=== PATIENT | female | born 1940 | race Caucasian/White ===

== ENCOUNTER 2025-04-17 07:47 | Inpatient (IN) | payer MEDICARE, SELFPAY ==
[2025-04-17] VITALS (15 sets, daily range): BP systolic 131–178; BP diastolic 47–76; PULSE 55–89; RESP 17–28; TEMP 36.1–37.2; O2SAT 93–99; BMI 32.3; BMI 30.4
--- NOTE | 2025-04-17 08:12 | RAD_ITS ---
PROCEDURE: CHEST PA AND LATERAL 04/17/2025 REASON FOR EXAM: SOB TECHNIQUE: CHEST PA AND LATERAL COMPARISON: None FINDINGS: Moderate left base effusion. Left base consolidation not excluded. Trace right base effusion. Right lower lobe opacity not excluded. No pneumothorax. Cardiac silhouette is enlarged. Calcified aortic arch. RAD/Chest PA and Lateral IMPRESSION: Moderate left base effusion. Left base consolidation not excluded. Trace righ t base effusion. Right lower lobe opacity not excluded. No pneumothorax. Reading Location: [id number]
[2025-04-17] MEDS: Albuterol 2.5 MG/3 ML VIAL.NEB. INHALATION (08:20)
--- NOTE | 2025-04-17 08:31 | ED.VIS.DYS ---
HPI History of Present Illness Chief Complaint: Shortness of Breath Informant: patient, family and EMS Narrative Narrative: 84-year-old female presenting for shortness of breath. This has been going on for weeks or maybe about a month gradually getting worse. Started with cough, she has been treated with several rounds of antibiotics and steroids after being diagnosed with pneumonia as an outpatient. She now has been put on oxygen at home on 2 L. She is having no chest pain but she has been having swelling of both of her legs for couple weeks, feeling tired. No vomiting, abdominal pain, diarrhea, or bleeding from anywhere. No history of any heart problems that she knows of. She has a history of asthma and she is on Qvar for that, but she does not feel like she is wheezing and she does not have an inhaler or breathing treatments at home. Very dyspneic with any exertion, that is getting worse and other treatments seem to be helping. She does have orthopnea, she reports no PND. [facility] Medical History Stage 3b chronic kidney disease (CKD) Essential (primary) hypertension Asthma Hypertensive kidney disease with chronic kidney disease stage III Home Medications Medication Instructions Recorded Last Taken Type albuterol sulfate 90 mcg/actuation 1 - 2 puff inhalation 4X/DAY PRN 04/17/25 04/15/25 History aerosol inhaler wheezing amlodipine 10 mg tablet 10 mg PO DAILY 04/17/25 04/16/25 History amoxicillin 500 mg-potassium 1 tab PO Q12H 04/17/25 04/16/25 History clavulanate 125 mg tablet beclomethasone dipropionate 80 1 - 2 inh inhalation BID 04/17/25 Unknown History mcg/actuation HFA breath activated aerosol (Qvar RediHaler) cholecalciferol (vitamin D3) 25 25 mcg PO DAILY 04/17/25 04/16/25 History mcg (1,000 unit) tablet (Vitamin D3) cyanocobalamin (vitamin B-12) 1,000 mcg PO DAILY 04/17/25 04/16/25 History 1,000 mcg tablet hydrochlorothiazide 12.5 mg tablet 12.5 mg PO DAILY 04/17/25 04/16/25 History levothyroxine 50 mcg tablet 50 mcg PO DAILY disorder of 04/17/25 04/16/25 History thyroid gland losartan 50 mg tablet 50 mg PO DAILY 04/17/25 04/16/25 History metoprolol succinate 50 mg 50 mg PO BID 04/17/25 04/16/25 History tablet,extended release 24 hr prednisone 10 mg tablet 10 mg PO DAILY 04/17/25 04/16/25 History Allergy/AdvReac Type Severity Reaction Status Date / Time No Known Allergies Allergy Verified 04/17/25 07:52 Surgical History Hx of appendectomy Social History Smoking Status: Never smoker ROS ROS ED Constitutional Constitutional ED: Reports fatigue; Denies chills or fever(s) Eyes Eyes: Denies change in vision or diplopia ENT ENT ED: Denies rhinorrhea or sore throat Cardiovascular Cardiovascular: Reports fatigue, leg edema and orthopnea; Denies chest pain, palpitations, racing heartbeat or radiating jaw, neck or arm pain Respiratory/Chest Respiratory/Chest: Reports cough, dyspnea, dyspnea on exertion and orthopnea; Denies sputum Gastrointestinal Gastrointestinal: Denies abdominal pain, diarrhea, nausea or vomiting Genitourinary Genitourinary ED: Denies dysuria or hematuria Musculoskeletal Musculoskeletal: Denies back pain or neck pain Integumentary Denies abscess or rash Neurologic Neurologic: Denies headache(s), paresthesias or weakness Psychiatric Psychiatric: Denies anxiety or suicidal thoughts EXAM Physical Exam Const Vital Signs: 04/17/25 07:48 04/17/25 07:52 04/17/25 07:56 Temperature 97.7 F L 97.7 F L Temperature Source Oral Oral Pulse Rate 69 69 Respiratory Rate 28 H 28 H Respiratory Effort Short of Breath Labored Respiratory Depth Shallow Respiratory Pattern Tachypnea Blood Pressure 178/57 H 178/57 H Blood Pressure Mean 97 97 Pulse Ox 93 93 Oxygen Delivery Method Nasal Cannula Nasal Cannula Nasal Cannula Oxygen Flow Rate (L/min) 6 6 6 04/17/25 08:21 04/17/25 08:21 04/17/25 08:52 Temperature 98.9 F Temperature Source Temporal Pulse Rate 59 L 78 Respiratory Rate 24 H 26 H Respiratory Effort Respiratory Depth Respiratory Pattern Tachypnea Blood Pressure 152/76 H Blood Pressure Mean 101 Pulse Ox 96 97 Oxygen Delivery Method Nasal Cannula Nasal Cannula Oxygen Flow Rate (L/min) 3 3 04/17/25 10:00 Temperature 98.9 F Temperature Source Oral Pulse Rate 78 Respiratory Rate 24 H Respiratory Effort Respiratory Depth Respiratory Pattern Blood Pressure 142/76 H Blood Pressure Mean 98 Pulse Ox 98 Oxygen Delivery Method Nasal Cannula Oxygen Flow Rate (L/min) 2 Positive well nourished, well developed and obese General Appearance ED: well developed and NAD Nutritional Appearance: obese HEENT Reports moist mucous membranes normocephalic and atraumatic Eyes PERRL and EOMs intact bilaterally Neck full ROM, supple and no JVD Resp normal respiratory effort and clear to auscultation bilaterally Resp Narrative: Very diminished at bases Cardio regular rate and regular rhythm Jugular Venous Distention: JVD GI non-tender and non-distended Auscultation: normoactive bowel sounds Palpation: soft Back/Spine no CVA tenderness General Back: other FROM Extremity normal to inspection General Extremety ED: Yes edema; Negative for pulses abnormal or tenderness General Extremity: edema bilateral lower extremity Details: severe; Negative for pulses abnormal Neuro oriented x3, CN's II-XII intact bilaterally and no sensory deficits noted Sensorium / Orientation: awake and alert Motor Exam: strength 5/5 throughout Psych mental status grossly normal Skin no rashes or lesions noted and no wounds MDM MDM MDM Narrative Medical decision making narrative: Patient on 2 L of oxygen at home, she was hypoxic at 89% on her home 2 L for EMS while at rest. They put her on 6 L 93-94%, respiratory has her down to 3 L at 96% before giving her a breathing treatment while resting. Patient in no respiratory distress, she is a little tachypneic, but her overall clinical picture is concerning for congestive heart failure which she does not have a known history of although she does have a history of stage IIIb chronic kidney disease. She does not have an old echo available for me to review. While working her up here, she was given a breathing treatment and a dose of IV Lasix. 2 view chest x-ray my interpretation shows bilateral pleural effusions much larger on the left. I do not have old labs or values on her, I tried to look her chart up in [facility]'s system but I am not able to see her records. She has a hemoglobin of 8.2 without evidence of acute blood loss. Her troponin is nonspecifically elevated but in context of poor renal function and her proBNP is over 11,000 and also in context of poor renal function. Her potassium is slightly elevated, I do not see acute EKG changes of hyperkalemia, 5.6 is elevated but not severely so. She also has hyponatremia at 124. This is likely hypervolemic and related to CHF as well. However I suggest that all of this is congestive heart failure-related including the effusions which are probably the main source of her dyspnea. Given her hypoxemia and respiratory insufficiency, I think admitting her for further workup is indicated. She is stable enough to go to monitored bed without ICU. Discussed with hospitalist who requests that we order a thoracentesis for the left, since it is Sunday so she can get it done before the weekend, at which point IR is unavailable. History & Record Review Additional record(s) reviewed:: Prior labs (2 weeks ago 04/03, [facility] outpatient: Iron studies normal. Hemoglobin 9.2. BUN 41, creatinine 2.0.) Lab Data Attestation: I reviewed the patient's lab results. Labs: Laboratory Results - last 24 hr 04/17/25 08:42 WBC 7.5 RBC 2.73 L Hgb 8.2 L Hct 25.4 L MCV 93.0 MCH 30.0 MCHC 32.3 RDW Std Deviation 48.5 H RDW Coeff of Last 14.4 Plt Count 197 MPV 9.1 Immature Gran % (Auto) 2.300 H Neut % (Auto) 75.2 H Lymph % (Auto) 11.8 L [place] % (Auto) 9.6 Eos % (Auto) 0.8 Baso % (Auto) 0.3 Absolute Neuts (auto) 5.6 Absolute Lymphs (auto) 0.88 Nucleated RBC % 0 Sodium 124 L Potassium 5.6 H Chloride 94 L Carbon Dioxide 19.6 L Anion Gap 10 BUN 54 H Creatinine 2.66 H Estim Creat Clear Calc 13.73 L Est GFR (MDRD) Non-Af 17 L BUN/Creatinine Ratio 20.2 H Glucose 102 H Calcium 8.0 Troponin T High [place] 35 [place] [address] H Radiography Diagnostic Testing: Clinical Impression(s) from Imaging Studies Chest X-Ray 04/17/25 08:12 IMPRESSION: Moderate left base effusion. Left base consolidation not excluded. Trace right base effusion. Right lower lobe opacity not excluded. No pneumothorax. Reading Location: [facility] Rhythm Strip Rhythm Strip: Sinus Rhythm Rate: 60 Ectopy: None EKG Initial EKG: Attestation: I personally reviewed and interpreted this EKG as follows: Interpretation: Sinus Rhythm and No Acute Injury Pattern Comments: Nml axis & intervals; nml EKG Management Discussion w/another healthcare provider: Hospitalist Discharge Plan Dx/Rx/DC Orders Clinical Impression: Hypoxemia, Acute respiratory insufficiency, Acute CHF, Bilateral pleural effusion, Chronic kidney disease, stage 3b, Anemia, Hyponatremia, Hyperkalemia, diminished renal excretion Disposition Disposition: Acute Care Hospital [facility]
[2025-04-17 08:57] LABS: Absolute Lymphocyte Count 0.88 X10^3/uL (0.83-4.51); Absolute Neutrophil Count 5.6 X10^3/uL (2.0-7.7); Basophil# 0.02 X10^3/uL; Basophil% 0.3 % (0-1); Eosinophil# 0.06 X10^3/uL; Eosinophils% 0.8 % (0-5); Hematocrit 25.4 % (37-47); Hemoglobin 8.2 g/dL (12.0-15.0); Lymphocyte # 0.88 X10^3/ul (0.83-4.51); Lymphocyte % 11.8 % (19-41); Mean Corp Hgb Conc 32.3 g/dL (32-36); Mean Platelet Vol. 9.1 fl (6.2-12.0); Monocyte# 0.72 X10^3/uL; Monocyte% 9.6 % (0-10); NRBC Flagged by Analyzer 0 % (0-5); Neutrophil # 5.62 X10^3/uL (2.7-7.7); Neutrophil % 75.2 % (47-70); Platelet Count 197 K/mm3 (150-450); RBC Distribution Width CV 14.4 % (11.6-14.6); RBC Distribution Width SD 48.5 fl (35.1-43.9); Red Blood Count 2.73 M/mm3 (4.2-5.4); White Blood Count 7.5 K/mm3 (4.4-11.0)
[2025-04-17] MEDS: Furosemide 40 MG/4 ML Vial IV (09:27)
[2025-04-17 09:40] LABS: Anion Gap 10 (5-15); BUN 54 mg/dL (4-19); BUN/Creat Ratio 20.2 RATIO (10-20); Carbon Dioxide 19.6 mmol/L (21.0-32.0); Chloride 94 mmol/L (98-108); Creatinine, Serum 2.66 mg/dL (0.70-1.20); EST Glomerular Filtration Rate 17 (>60); Estimated Creatinine Clearance 13.73 ml/min (50-250); Glucose 102 mg/dL (70-99); Potassium 5.6 mmol/L (3.3-5.1); Sodium Level 124 mmol/L (133-145)
[2025-04-17 10:14] LABS: Pro- Brain NATRIURETIC PEPTIDE 11342 pg/mL (<=1800); Troponin T High Sensitivity 35 ng/L (<=14)
--- NOTE | 2025-04-17 10:38 | US_ITS ---
PROCEDURE: THORACENTESIS W US 04/17/2025 REASON FOR EXAM: HYPOXEMIA, LEFT PLEURAL EFFUSION TECHNIQUE: THORACENTESIS W US COMPARISON: None. FINDINGS: Following informed consent, using standard sterile technique, an ultrasound- guided left thoracentesis was performed via a posterior approach. 2% lidocaine local anesthesia was followed by placement of a 5 Khmer catheter into the left thoracic fluid collection. Approximately 610 mL of clear yellow fluid was successfully removed. A portion of the fluid was sent to the laboratory for further evaluation. No complication was encountered, and the patient left the department in good condition without significant complaint. US/Thoracentesis W US IMPRESSION: Successful diagnostic and therapeutic ultrasound-guided left thoracentesis. Reading Location: [place] [id number]
[2025-04-17 11:26] LABS: Prothrombin Time (Protime)PT. 13.5 SECONDS (11.7-14.9)
[2025-04-17 11:27] LABS: Partial Thromboplast Time 33.9 Seconds (24.1-36.2)
--- NOTE | 2025-04-17 12:00 | CASEMGMT ---
Addendum entered by Coreen Peoples 04/17/25 12:13: Care Management DME: Patient received at home oxygen this week through [employer], on 2 Liters continual. CARLITO Rivas, PATRIC Original Note: Care Management Face to Face with patient for initial transition planning/care coordination assessment in the ED. This speech writer introduced self and role at [facility]. Patient alert and oriented. Patient willing to participate in assessment and is able to answer all questions appropriately. Care providers, pharmacy, and demographics verified. Admitting Diagnosis: Shortness of breath Other diagnosis history: CKD, hypertension, asthma PCP: Carlos Specialists: none Preferred Pharmacy: [facility] Insurance: [employer] Prescription Benefit: yes Living Will/HPOA: completed, asked to bring in copy LNOK: daughter Living Arrangements: lives with daughter, patient resides on the first floor. Had been independent with ADLs, last few days having difficulty completing tasks Transportation: daughter DME: cane, shower bench, grab bar, pulse ox, blood pressure cuff HHC: none SNF/Rehab: none Community Resources: none Behavioral Health History: none Patient goals: Patient wishes to discharge home, denies need for home health care at this time. Patient denies any further needs or concerns at this time. Disposition Plan: admission to acute; RN CM/SW to follow for discharge planning needs that may arise. CARLITO Rivas, PATRIC
[2025-04-17 12:37] LABS: AST(SGOT) 17 U/L (<=31); Alanine Aminotransfer ALT/SGPT 16 U/L (<=34); Albumin, Serum 3.5 g/dL (3.4-4.8); Alkaline Phosphatase 58 U/L (35-104); Bilirubin, Direct 0.08 mg/dL (0.00-0.30); Protein, Total 6.5 g/dL (5.9-8.4); Total Bilirubin 0.21 mg/dL (0.00-1.30)
--- NOTE | 2025-04-17 13:06 | ECHOD_ITS ---
Reason For Study Reason For Study: SOB Procedure This was a 2D Doppler, Color Flow transthoracic echocardiogram. Exam performed portable in patient room. Left Ventricle Normal LV size. Mild concentric left ventricular hypertrophy. The LV ejection fraction is 60 %. Stage II LV diastolic dysfunction with elevated left atrial filling pressures. Right Ventricle Normal right ventricle. Atria The left atrium is moderately enlarged. The right atrium is mildly enlarged. Mitral Valve Moderate mitral annular calcification. Mild (1+) mitral valve insufficiency. Tricuspid Valve Moderate to severe tricuspid valve insufficiency. Estimated RVSP 66 mmHg. Aortic Valve Aortic valve sclerosis with no stenosis. Mild to moderate aortic valve regurgitation. Pulmonic Valve Mild-Moderate (1-2+) pulmonic valve insufficiency. Great Vessels Normal sized aortic root. Pericardium/Pleural Trivial pericardial effusion. MMode/2D Measurements & Calculations LVIDd: 5.4 cm IVSd: 1.2 cm LVOT diam: 2.0 cm LVIDs: 3.6 cm LVPWd: 1.2 cm LVOT area: 3.2 cm2 RVDd: 3.6 cm FS: 32.2 % LA dimension: 3.9 cm LAV(MOD-bp): 108.1 ml LVAd ap4: 29.4 cm2 LAV(MOD-bp) Indexed: 62.8 ml/m2 LVLd ap4: 8.3 cm LAV(MOD-sp2): 93.6 ml EDV(MOD-sp4): 87.0 ml LAV(MOD-sp4): 108.8 ml EDV(sp4-el): 88.4 ml LVAs ap4: 18.0 cm2 LVLs ap4: 7.0 cm ESV(MOD-sp4): 39.8 ml ESV(sp4-el): 39.2 ml EF(MOD-sp4): 54.2 % EF(sp4-el): 55.7 % SV(MOD-sp4): 47.1 ml SV(sp4-el): 49.2 ml LA A4 area: 31.1 cm2 SI(MOD-sp4): 27.4 ml/m2 RA A4 area: 17.6 cm2 Time Measurements MV dec time: 0.22 sec Doppler Measurements & Calculations MV E max antonio: 143.5 cm/sec Lat Peak E' Antonio: 9.0 cm/sec Med Peak E' Antonio: 6.7 cm/sec MV A max antonio: 145.5 cm/sec E/E' lat: 15.9 E/E' med: 21.5 MV E/A: 0.99 MV V2 max: 161.4 cm/sec Ao V2 max: 227.6 cm/sec MV max P.4 mmHg MV dec slope: 652.9 cm/sec2 Ao max P.7 mmHg MV V2 mean: 92.4 cm/sec Ao V2 mean: 142.9 cm/sec MV mean P.1 mmHg Ao mean P.6 mmHg MV V2 VTI: 63.0 cm Ao V2 VTI: 54.6 cm AV (velocity ratio): 0.89 MVA(VTI): 2.4 cm2 MILES(I,D): 2.8 cm2 MILES(V,D): 2.4 cm2 AI max antonio: 432.1 cm/sec LV V1 max: 169.9 cm/sec SV(LVOT): 153.5 ml AI max P.7 mmHg LV V1 max P.6 mmHg LV V1 mean P.3 mmHg AI dec slope: 258.3 cm/sec2 LV V1 mean: 94.2 cm/sec AI P1/2t: 489.9 msec LV V1 VTI: 48.4 cm TR max antonio: 356.5 cm/sec TR max P.8 mmHg ECHO/Echo Complete Interpretation Summary Mild concentric left ventricular hypertrophy. The LV ejection fraction is 60 %. Stage II LV diastolic dysfunction with elevat ed left atrial filling pressures The left atrium is moderately enlarged. The right atrium is mildly enlarged. Moderate mitral annular calcification. Mild (1+) mitral valve insufficiency. Moderate to severe tricuspid valve insufficiency. Estimated RVSP 66 mmHg. Aortic valve sclerosis with no stenosis. Mild to moderate aortic valve regurgit ation. Mild-Moderate (1-2+) pulmonic valve insufficiency. Ordering Physician: Nestor Rankin Referring Physician: Nestor Rankin Performed By: Alondra Cross and Student
[2025-04-17] MEDS: Lidocaine 2% (20 ml mdv) 20 ML Vial INFILT (13:50)
--- NOTE | 2025-04-17 13:50 | FLU_PTH ---
PATIENT: BRENDA JULIAN LOC: [facility] U#:[id number] AGE/SX: 84/F ROOM: [facility] RE04/17/[address]: Dr. Nestor Rankin MD : [id number] BED: 1 DIS: 04/20/2025 SPEC #: [id number] RECD: 04/17/25 14:07 STATUS: JYOTHI REQ #: [id number] FARNAZ: 04/17/25 13:[address]: Nestor Rankin DEPT: CYTOLOGY RECD BY: Ori Pozo ENTERED: 04/20/25 09:26 SP TYPE: Fluid OTHR DR: MD Dr. Ally Rudd MD Tissues: A - THORACIC FLUID Procedures: Special Stain Group II Surgery Specimen Level IV Cytospin Fluid HEADER OPERATION: Ultrasound guided thoracentesis PRE-OP DIAGNOSIS: Pleural effusion TISSUE SUBMITTED: A- Thoracentesis fluid for cytology DIAGNOSIS CYTOLOGY Pleural effusion: Abundant reactive mesothelial cells and mixed inflammation (predominately lymphocytes). CYTOLOGY STUDY Slides are reviewed. CYTOLOGY GROSS A. Received is 100 ml of hazy-yellow fluid labeled with the patient's name and and designated per the requisition as "Thoracentesis fluid." Submitted for cytology and cell block preparation. Mr 04/20/2025 CPT: 10658
[2025-04-17 14:14] LABS: Cytology, Body Fluid / CSF SEE PATHOLOGY REPORT
[2025-04-17 15:16] LABS: Glucose, Body Fluid 103 mg/dL (Not Establ.); LDH,Body Fluid 62 Units/L (Not Establ.)
[2025-04-17 15:31] LABS: Body Fluid Mononuclear WBC # 0.537 10^3/uL; Body Fluid Mononuclear WBC % 97.5 %; Body Fluid Polynuclear WBC # 0.014 10^3/uL; Body Fluid Polynuclear WBC % 2.5 %; Body Fluid Total Cells Counted 0.654 10^3/ul; White Blood Count/Body Fluid 0.551 10^3/uL
--- NOTE | 2025-04-17 16:29 | PCM.HP.STD ---
HPI - General General Date of Admission: 04/17/25 Date of Service: 04/17/25 Chief Complaint: Progressive worsening shortness of breath for 4 weeks HPI Narrative BRENDA JULIAN, is a 84 F came to ED for progressive shortness of breath for 4 weeks. Dyspnea on exertion/walking for last 2 to 3 days. She was prescribed oxygen by PCP 2 L recently but at home was 89% on 2 L. Denies any chest pain pressure or tightness. She has cough for several weeks and getting several rounds of antibiotics and the steroids by PCP. She had completed Augmentin about 2 weeks ago. Still she has symptoms of shortness of breath mild cough. She denies thick yellow phlegm but mainly productive. She also has bilateral lower extremity swelling for last couple weeks and gets tired. Denies prior cardiac history including SC or diagnosis of CHF. Denies chest pressure or tightness or discomfort. In ED, her BP was high 178/57, tachypneic 28/min. Heart rate 69/min. Pulse ox 97% on 3 L of oxygen per [facility] Medical History Stage 3b chronic kidney disease (CKD) Essential (primary) hypertension Asthma Hypertensive kidney disease with chronic kidney disease stage III Home Medications Medication Instructions Recorded Last Taken Type albuterol sulfate 90 mcg/actuation 1 - 2 puff inhalation 4X/DAY PRN 04/17/25 04/15/25 History aerosol inhaler wheezing amlodipine 10 mg tablet 10 mg PO DAILY 04/17/25 04/16/25 History amoxicillin 500 mg-potassium 1 tab PO Q12H 04/17/25 04/16/25 History clavulanate 125 mg tablet beclomethasone dipropionate 80 1 - 2 inh inhalation BID 04/17/25 Unknown History mcg/actuation HFA breath activated aerosol (Qvar RediHaler) cholecalciferol (vitamin D3) 25 25 mcg PO DAILY 04/17/25 04/16/25 History mcg (1,000 unit) tablet (Vitamin D3) cyanocobalamin (vitamin B-12) 1,000 mcg PO DAILY 04/17/25 04/16/25 History 1,000 mcg tablet hydrochlorothiazide 12.5 mg tablet 12.5 mg PO DAILY 04/17/25 04/16/25 History levothyroxine 50 mcg tablet 50 mcg PO DAILY disorder of 04/17/25 04/16/25 History thyroid gland losartan 50 mg tablet 50 mg PO DAILY 04/17/25 04/16/25 History metoprolol succinate 50 mg 50 mg PO BID 04/17/25 04/16/25 History tablet,extended release 24 hr prednisone 10 mg tablet 10 mg PO DAILY 04/17/25 04/16/25 History Allergy/AdvReac Type Severity Reaction Status Date / Time No Known Allergies Allergy Verified 04/17/25 07:52 Surgical History Hx of appendectomy Social History Smoking Status: Never smoker ROS ROS Narrative Constitutional: Reports fatigue and weakness for more than 1 month. No fever. HEENT: Reports systems reviewed and no addt'l complaints, except as documented Respiratory/Chest: As described in HPI CVS: No chest pressure or tightness Gastrointestinal: Denies coffee ground emesis, hematemesis or vomiting Genitourinary: Chronic kidney disease. Denies burning urination or new urinary tract symptoms Musculoskeletal: Denies acute joint pain or limited range of motion. No acute injury. Chronic arthritis. Chronic leg swelling. Neurologic: Denies seizure-like symptoms. skin: No ulcer. No rash Endocrinology: Reports systems reviewed and no addt'l complaints, except as documented Hematologic/Lymphatic: Reports systems reviewed and no addt'l complaints, except as documented Rest 14 ROS are negative except as mentioned in HPI Vital Signs Vital Signs Vital Signs: 04/17/25 07:48 04/17/25 07:52 04/17/25 07:56 Temperature 97.7 F L 97.7 F L Temperature Source Oral Oral Pulse Rate 69 69 Respiratory Rate 28 H 28 H Respiratory Effort Short of Breath Labored Respiratory Depth Shallow Respiratory Pattern Tachypnea Blood Pressure 178/57 H 178/57 H Blood Pressure Mean 97 97 Pulse Ox 93 93 Oxygen Delivery Method Nasal Cannula Nasal Cannula Nasal Cannula Oxygen Flow Rate (L/min) 6 6 6 04/17/25 08:21 04/17/25 08:21 04/17/25 08:52 Temperature 98.9 F Temperature Source Temporal Pulse Rate 59 L 78 Respiratory Rate 24 H 26 H Respiratory Effort Respiratory Depth Respiratory Pattern Tachypnea Blood Pressure 152/76 H Blood Pressure Mean 101 Pulse Ox 96 97 Oxygen Delivery Method Nasal Cannula Nasal Cannula Oxygen Flow Rate (L/min) 3 3 04/17/25 10:00 04/17/25 11:00 04/17/25 13:07 Temperature 98.9 F 98.9 F 98.4 F Temperature Source Oral Oral Oral Pulse Rate 78 89 74 Respiratory Rate 24 H 22 H 19 H Respiratory Effort Respiratory Depth Respiratory Pattern Blood Pressure 142/76 H 142/66 H 154/50 H Blood Pressure Mean 98 91 84 Pulse Ox 98 97 97 Oxygen Delivery Method Nasal Cannula Nasal Cannula Nasal Cannula Oxygen Flow Rate (L/min) 2 3 3 04/17/25 14:12 04/17/25 14:13 Temperature Temperature Source Pulse Rate 65 61 Respiratory Rate 18 18 Respiratory Effort Normal Non-Labored Respiratory Depth Respiratory Pattern Blood Pressure 155/57 H 148/50 H Blood Pressure Mean Pulse Ox Oxygen Delivery Method Nasal Cannula Nasal Cannula Oxygen Flow Rate (L/min) 3 3 Weight Weight: 156 lb 1.396 oz Body Mass Index (BMI) 30.4 Physical Exam Narrative General: Alert, Oriented x3, Cooperative. BMI 30.5 kg/m² HEENT: Atraumatic, PERRLA, EOMI, Normocephalic. Oral: No Gingival or Mucosal Lesions/ Ulcerations Neck: Supple, No JVD, Negative Carotid Bruits Chest wall/Lungs: Air entry diminished in bilateral lung bases. No crepitation/rhonchi Cardiovascular: Regular rate and rhythm, Normal S1,S2, systolic murmur over LSB and cardiac apex. Abdomen: Bowel Sounds Present, Soft, Non Tender, Non-Distended : No dysuria. No renal angle tenderness. No suprapubic tenderness. Extremities: Bilateral 3+ lower extremity edema capillary Refill Less than 3 Seconds Skin: No rashes, No breakdown Musculoskeletal: No Tenderness to Palpation of Joints or Extremities Neurological: Cranial nerves II-XII grossly intact, DTR 2+/4. No acute focal neurological deficit. Psych/Mental Status: Normal Affect, Appropriate. Results Lab / Micro Data 04/17/25 08:42 04/17/25 08:42 Labs: Laboratory Results - last 24 hr 04/17/25 08:42: WBC 7.5, RBC 2.73 L, Hgb 8.2 L, Hct 25.4 L, MCV 93.0, MCH 30.0, MCHC 32.3, RDW Std Deviation 48.5 H, RDW Coeff of Last 14.4, Plt Count 197, MPV 9.1, Immature Gran % (Auto) 2.300 H, Neut % (Auto) 75.2 H, Lymph % (Auto) 11.8 L, Kaufman % (Auto) 9.6, Eos % (Auto) 0.8, Baso % (Auto) 0.3, Absolute Neuts (auto) 5.6, Absolute Lymphs (auto) 0.88, Nucleated RBC % 0, PT 13.5, INR 1.0, APTT 33.9, Sodium 124 L, Potassium 5.6 H, Chloride 94 L, Carbon Dioxide 19.6 L, Anion Gap 10, BUN 54 H, Creatinine 2.66 H, Estim Creat Clear Calc 13.73 L, Est GFR (MDRD) Non-Af 17 L, BUN/Creatinine Ratio 20.2 H, Glucose 102 H, Calcium 8.0, Total Bilirubin 0.21, Direct Bilirubin 0.08, AST 17, ALT 16, Alkaline Phosphatase 58, Troponin T High Sens 35 H, [place] [address] H, Total Protein 6.5, Albumin 3.5, Globulin 3.0 04/17/25 13:50: Fluid WBC 0.551, Fluid Tot Cell Count 0.654 H, Fld Polynuclear WBCs # 0.014, Fld Polynuclear WBCs % 2.5, Fluid Mononuclear WBCs 0.537, Fld Mononuclear WBCs % 97.5, Fluid Glucose 103, Fluid LDH 62 Rhythm Strip Rhythm Strip: Sinus Rhythm Rate: 60 Ectopy: None Imaging Radiology Impression Chest X-Ray 04/17/25 08:12 IMPRESSION: Moderate left base effusion. Left base consolidation not excluded. Trace right base effusion. Right lower lobe opacity not excluded. No pneumothorax. Reading Location: [facility] Thoracentesis Ultrasound 04/17/25 10:38 IMPRESSION: Successful diagnostic and therapeutic ultrasound-guided left thoracentesis. Reading Location: [facility] Echocardiogram 04/17/25 13:06 Interpretation Summary Mild concentric left ventricular hypertrophy. The LV ejection fraction is 60 %. Stage II LV diastolic dysfunction with elevated left atrial filling pressures The left atrium is moderately enlarged. The right atrium is mildly enlarged. Moderate mitral annular calcification. Mild (1+) mitral valve insufficiency. Moderate to severe tricuspid valve insufficiency. Estimated RVSP 66 mmHg. Aortic valve sclerosis with no stenosis. Mild to moderate aortic valve regurgitation. Mild-Moderate (1-2+) pulmonic valve insufficiency. Ordering Physician: Nestor Rankin Referring Physician: Nestor Rankin Performed By: Alondra Cross and Student Assessment & Plan Assessment/Plan (1) Chronic kidney disease, stage 3b: (2) Acute on chronic heart failure with preserved ejection fraction (HFpEF): (3) Hyperkalemia, diminished renal excretion: (4) Chronic kidney disease (CKD), stage 4: PLAN: Plan This is a 84-year-old female being admitted for progressive worsening of shortness of breath and lower extremity edema for 1 month. 1. Acute HFrEF with chronic lower extremity edema complicated with left moderate pleural effusion: Chest x-ray negative urine shows left moderate to large pleural effusion. proBNP high 11,042. Mildly elevated troponin 35 and 36 no significant delta change and therefore ACS ruled out and patient does not have chest pain pressure or tightness. Baby aspirin added. Patient can have outpatient nuclear stress test once euvolemic/heart failure symptoms are controlled. Patient had ultrasound-guided thoracocentesis, 610 mL of clear fluid was removed. Fluid analysis pending 2D echo shows EF 60% but stage II diastolic dysfunction with elevated LA filling pressure, moderately enlarged LA and mildly enlarged RA therefore acute HFpEF. Started on furosemide 60 mg IV twice daily as patient has CKD stage IV. 2. Valvular heart disease: Echo also shows mild MR, moderate to severe TR, estimated RVSP 66 mmHg suggestive of high pulmonary hypertension, mild to moderate AI and 1-2+ PI. For now medical management. Continue metoprolol succinate 50 mg twice daily. Hold losartan for hold for serum potassium more than 5.0 3. Left moderately enlarged left pleural effusion: Fluid mononuclear cells 537, polynuclear 14 therefore unlikely infectious causes like empyema or parapneumonic effusion. Fluid LDH 62, fluid glucose 103. 4. Stage IV CKD with hyperkalemia: No history of cirrhosis tests reviewed but looks progressively progress to stage IV most likely due to hypertension. Creatinine clearance is 13.73. Serum potassium 5.6. Bicarb 19.6, anion gap 10. BUN/creatinine 50/2.66. Hold nephrotoxic medications therefore losartan was held 5. Chronic essential hypertension: On losartan 50 mg daily continued. 6. History of asthma: Controlled. On rescue inhaler and beclomethasone continued DVT prophylaxis heparin 5000 units subcutaneous twice daily. Living will/advanced directive/end of life care: Patient does have living will or advanced directive. She stated her daughter present in the room is power of commercial litigation attorney for health. After discussion of benefits/risks procedures involved with full code, DNR CC arrest and DNR CC, the patient opted for full code for now as she is not sure. She will further clarify her CODE STATUS on the paper and may change to DNR CC arrest with no intubation Patient does want artificial life support including intubation, tube feed, ventilator and/chest compression, central venous catheter, vasopressor and DC shock if needed Total time spent in [id number] encounter in discussion of advanced directive 17 minutes. Laboratory Results 04/17/25 08:42: WBC 7.5, RBC 2.73 L, Hgb 8.2 L, Hct 25.4 L, MCV 93.0, MCH 30.0, MCHC 32.3, RDW Std Deviation 48.5 H, RDW Coeff of Last 14.4, Plt Count 197, MPV 9.1, Immature Gran % (Auto) 2.300 H, Neut % (Auto) 75.2 H, Lymph % (Auto) 11.8 L, Kaufman % (Auto) 9.6, Eos % (Auto) 0.8, Baso % (Auto) 0.3, Absolute Neuts (auto) 5.6, Absolute Lymphs (auto) 0.88, Nucleated RBC % 0, PT 13.5, INR 1.0, APTT 33.9, Sodium 124 L, Potassium 5.6 H, Chloride 94 L, Carbon Dioxide 19.6 L, Anion Gap 10, BUN 54 H, Creatinine 2.66 H, Estim Creat Clear Calc 13.73 L, Est GFR (MDRD) Non-Af 17 L, BUN/Creatinine Ratio 20.2 H, Glucose 102 H, Calcium 8.0, Total Bilirubin 0.21, Direct Bilirubin 0.08, AST 17, ALT 16, Alkaline Phosphatase 58, Troponin T High Sens 35 H, [place] [address] H, Total Protein 6.5, Albumin 3.5, Globulin 3.0 04/17/25 13:50: Fluid Source Pending, Fluid Color Pending, Fluid Appearance Pending, Fluid WBC 0.551, Fluid RBC Pending, Fluid Tot Cell Count 0.654 H, Fld Polynuclear WBCs # 0.014, Fld Polynuclear WBCs % 2.5, Fluid Mononuclear WBCs 0.537, Fld Mononuclear WBCs % 97.5, Fl Pathologist Comment Pending, Fluid Glucose 103, Fluid LDH 62, Fluid Amylase Pending, Fluid Comment 2 Pending, Miscellaneous Cytology Pending 04/17/25 16:11: Troponin T High Sens 36 H Clinical Impression(s) from Imaging Studies Chest X-Ray 04/17/25 08:12 IMPRESSION: Moderate left base effusion. Left base consolidation not excluded. Trace right base effusion. Right lower lobe opacity not excluded. No pneumothorax. Reading Location: [facility] Thoracentesis Ultrasound 04/17/25 10:38 IMPRESSION: Successful diagnostic and therapeutic ultrasound-guided left thoracentesis. Reading Location: [facility] Echocardiogram 04/17/25 13:06 Interpretation Summary Mild concentric left ventricular hypertrophy. The LV ejection fraction is 60 %. Stage II LV diastolic dysfunction with elevated left atrial filling pressures The left atrium is moderately enlarged. The right atrium is mildly enlarged. Moderate mitral annular calcification. Mild (1+) mitral valve insufficiency. Moderate to severe tricuspid valve insufficiency. Estimated RVSP 66 mmHg. Aortic valve sclerosis with no stenosis. Mild to moderate aortic valve regurgitation. Mild-Moderate (1-2+) pulmonic valve insufficiency. Ordering Physician: Nestor Rankin Referring Physician: Nestor Rankin Performed By: Alondra Cross and Student Charges/Coding Visit Charges Inpatient E&M: 37928 Disch Hosp >30min
[2025-04-17 17:01] LABS: Troponin T High Sensitivity 36 ng/L (<=14)
[2025-04-17] MEDS: Metoprolol(XL)Succ 25 MG Tablet 12.5 MG PO (17:11)
[2025-04-17] MEDS: guaiFENesin/D-Methorphan TAB.SR.12H 2 TABLET PO (17:12)
[2025-04-17] MEDS: 0.9% Saline Lock 10 ML Syringe IV (17:24)
[2025-04-17] MEDS: Furosemide 100 MG/10 ML Vial 80 MG IV (17:24)
[2025-04-17 18:08] LABS: LDH 244 U/L (84-246)
[2025-04-17] MEDS: Aspirin E.C. 81 MG Tablet PO (18:18)
[2025-04-17 18:59] LABS: Troponin T High Sens 2 HR 37 ng/L (<=14)
[2025-04-17 19:59] LABS: Auto B Fluid Analyzer BKGD Ct COUNTS W/IN LIMITS (W/IN LIMITS)
[2025-04-17 20:00] LABS: Source- Body Fluid THORACENTESIS
[2025-04-17] MEDS: Budesonide Respules 0.5 MG/2 ML AMPUL.NEB. INHALATION (20:00)
[2025-04-17 20:01] LABS: Color/Body Fluid LT YEL
[2025-04-17 20:02] LABS: Appearance/Body Fluid CLEAR
[2025-04-17 20:04] LABS: Red Cell Count/Body Fluid 427 /mm3
[2025-04-17 20:05] LABS: Body Fluid QC Type(s) BF1Q
[2025-04-17] MEDS: Heparin Injection (Vial) 5,000 UNIT/ML VIAL 5000 UNIT SC (20:14)
[2025-04-17 20:31] LABS: Troponin T High Sens 4 HR 38 ng/L (<=14)
[2025-04-17 20:57] LABS: Lymphocytes 37 %; Monocytes 7 %
[2025-04-17 21:00] LABS: Neutrophil (Segs) 3 %
[2025-04-17 21:04] LABS: Macrophages 53 %
[2025-04-17 21:47] LABS: Specific Gravity, Body Fluid 1.017
[2025-04-18] VITALS (8 sets, daily range): BP systolic 147–159; BP diastolic 46–59; PULSE 65–74; RESP 18–20; TEMP 36.5–36.9; O2SAT 91–96; BMI 30.2
[2025-04-18] MEDS: Levothyroxine 50 MCG Tablet PO (05:07)
[2025-04-18] MEDS: Budesonide Respules 0.5 MG/2 ML AMPUL.NEB. INHALATION (06:37)
[2025-04-18 07:15] LABS: Absolute Lymphocyte Count 0.62 X10^3/uL (0.83-4.51); Basophil# 0.02 X10^3/uL; Basophil% 0.2 % (0-1); Eosinophil# 0.02 X10^3/uL; Eosinophils% 0.2 % (0-5); Hematocrit 24.6 % (37-47); Lymphocyte # 0.62 X10^3/ul (0.83-4.51); Lymphocyte % 7.3 % (19-41); Mean Corp Hgb Conc 32.5 g/dL (32-36); Mean Corpuscular Hgb 30.3 pg (27.0-32.0); Mean Corpuscular Volume 93.2 fL (81-99); Mean Platelet Vol. 9.5 fl (6.2-12.0); Monocyte# 0.59 X10^3/uL; NRBC Flagged by Analyzer 0 % (0-5); Neutrophil # 6.98 X10^3/uL (2.7-7.7); Neutrophil % 82.5 % (47-70); Platelet Count 167 K/mm3 (150-450); RBC Distribution Width CV 14.2 % (11.6-14.6); RBC Distribution Width SD 48.5 fl (35.1-43.9); Red Blood Count 2.64 M/mm3 (4.2-5.4); White Blood Count 8.5 K/mm3 (4.4-11.0)
[2025-04-18 07:39] LABS: Anion Gap 12 (5-15); BUN 59 mg/dL (4-19); BUN/Creat Ratio 22.2 RATIO (10-20); Carbon Dioxide 18.5 mmol/L (21.0-32.0); Chloride 95 mmol/L (98-108); Cholesterol 171 mg/dL (<=200); Creatinine, Serum 2.66 mg/dL (0.70-1.20); EST Glomerular Filtration Rate 17 (>60); Estimated Creatinine Clearance 13.27 ml/min (50-250); Glucose 100 mg/dL (70-99); High Density Lipoprotein 58 mg/dL; Low Density Lipoprotein Calc. 84 mg/dL; Potassium 5.7 mmol/L (3.3-5.1); Sodium Level 126 mmol/L (133-145); Triglycerides 142 mg/dL; Very Low Density Lipoprotein 28 mg/dL (5-40); cholesterol:hdl ratio screen 2.94
--- NOTE | 2025-04-18 08:24 | PN.HOSP_ITS ---
Reason for Visit Reason for Visit: Diagnoses Hyperkalemia (04/17/25) Acute on chronic diastolic (congestive) heart failure (04/17/25) Chronic kidney disease, stage 3b (04/17/25) Chronic kidney disease, stage 4 (severe) (04/17/25) Objective Data Objective Data Vital Signs: Vital Signs Temp Pulse Resp BP Pulse Ox O2 Del Method O2 Flow Rate 98.4 F 68 18 153/49 H 91 Nasal Cannula 4 04/18/25 05:00 04/18/25 06:38 04/18/25 06:38 04/18/25 05:00 04/18/25 06:38 04/18/25 06:38 04/18/25 06:38 Oxygen Flow Rate (L/min) 4 Oxygen Delivery Method Nasal Cannula Weight: 154 lb 12.232 oz Body Mass Index (BMI) 30.2 Intake & Output: Intake and Output for Last 24 Hours 04/16/25 04/17/25 04/18/25 23:59 23:59 23:59 Intake Total 300 / 650 600 / 600 Output Total 610 / 610 Balance -310 / 40 600 / 600 Lab / Micro Data 04/18/25 06:46 04/18/25 06:46 Labs: Laboratory Results - last 24 hr 04/17/25 08:42: WBC 7.5, RBC 2.73 L, Hgb 8.2 L, Hct 25.4 L, MCV 93.0, MCH 30.0, MCHC 32.3, RDW Std Deviation 48.5 H, RDW Coeff of Last 14.4, Plt Count 197, MPV 9.1, Immature Gran % (Auto) 2.300 H, Neut % (Auto) 75.2 H, Lymph % (Auto) 11.8 L , [place] % (Auto) 9.6, Eos % (Auto) 0.8, Baso % (Auto) 0.3, Absolute Neuts (auto) 5.6, Absolute Lymphs (auto) 0.88, Nucleated RBC % 0, PT 13.5, INR 1.0, APTT 33.9, Sodium 124 L, Potassium 5.6 H, Chloride 94 L, Carbon Dioxide 19.6 L, Anion Gap 10, BUN 54 H, Creatinine 2.66 H, Estim Creat Clear Calc 13.73 L, Est GFR (MDRD) Non-Af 17 L, BUN/Creatinine Ratio 20.2 H, Glucose 102 H, Calcium 8.0, Total Bilirubin 0.21, Direct Bilirubin 0.08, AST 17, ALT 16, Alkaline Phosphatase 58, Lactate Dehydrogenase 244, Troponin T High Sens 35 H, [place] [address] H, Total Protein 6.5, Albumin 3.5, Globulin 3.0 04/17/25 13:50: Fluid Source THORACENTESIS, Fluid Color LT YEL, Fluid Appearance CLEAR, Fluid Specific Grav 1.017, Fluid WBC 0.551, Fluid RBC 427, Fluid Tot Cell Count 0.654 H, Fld Polynuclear WBCs # 0.014, Fld Polynuclear WBCs % 2.5, Fluid Mononuclear WBCs 0.537, Fld Mononuclear WBCs % 97.5, Fluid Neutrophils 3, Fluid Lymphocytes 37, Fluid Monocytes 7, Fluid Macrophages 53, Fl Pathologist Comment May follow, Fluid Glucose 103, Fluid LDH 62, Fluid Comment 2 SEE COMMENT 04/17/25 16:11: Troponin T High Sens 36 H 04/17/25 18:29: Troponin T Hi Sens 2 Hr 37 H 04/17/25 19:59: Troponin T Hi Sens 4Hr 38 H 04/18/25 06:46: WBC 8.5, RBC 2.64 L, Hgb 8.0 L, Hct 24.6 L, MCV 93.2, MCH 30.3, MCHC 32.5, RDW Std Deviation 48.5 H, RDW Coeff of Last 14.2, Plt Count 167, MPV 9.5, Immature Gran % (Auto) 2.800 H, Neut % (Auto) 82.5 H, Lymph % (Auto) 7.3 L, [place] % (Auto) 7.0, Eos % (Auto) 0.2, Baso % (Auto) 0.2, Absolute Neuts (auto) 7.0, Absolute Lymphs (auto) 0.62 L, Nucleated RBC % 0, Sodium 126 L, Potassium 5.7 H, Chloride 95 L, Carbon Dioxide 18.5 L, Anion Gap 12, BUN 59 H, Creatinine 2.66 H, Estim Creat Clear Calc 13.27 L, Est GFR (MDRD) Non-Af 17 L, B UN/Creatinine Ratio 22.2 H, Glucose 100 H, Calcium 8.0, Triglycerides 142, Cholesterol 171, LDL Cholesterol, Calc 84, VLDL Cholesterol 28, HDL Cholesterol 58, Cholesterol/HDL Ratio 2.94 Micro: Microbiology 04/17/25 13:50 Fluid - Thoracentesis Fluid Gram Stain - Final Radiography Diagnostic Testing: Radiology Impression Chest X-Ray 04/17/25 08:12 IMPRESSION: Moderate left base effusion. Left base consolidation not excluded. Trace right base effusion. Right lower lobe opacity not excluded. No pneumothorax. Reading Location: [facility] Thoracentesis Ultrasound 04/17/25 10:38 IMPRESSION: Successful diagnostic and therapeutic ultrasound-guided left thoracentesis. Reading Location: [facility] Echocardiogram 04/17/25 13:06 Interpretation Summary Mild concentric left ventricular hypertrophy. The LV ejection fraction is 60 %. Stage II LV diastolic dysfunction with elevated left atrial filling pressures The left atrium is moderately enlarged. The right atrium is mildly enlarged. Moderate mitral annular calcification. Mild (1+) mitral valve insufficiency. Moderate to severe tricuspid valve insufficiency. Estimated RVSP 66 mmHg. Aortic valve sclerosis with no stenosis. Mild to moderate aortic valve regurgitation. Mild-Moderate (1-2+) pulmonic valve insufficiency. Ordering Physician: Nestor Rankin Referring Physician: Nestor Rankin Performed By: Alondra Cross and Student Rhythm Strip Rhythm Strip: Sinus Rhythm Rate: 60 Ectopy: None Physical Exam Narrative Seen and examined. Mild short of breath but better than yesterday. No chest pain. Physical exam General: Alert, Oriented x3, Cooperative. BMI 30.5 kg/m² HEENT: Atraumatic, PERRLA, EOMI, Normocephalic. Oral: No Gingival or Mucosal Lesions/ Ulcerations Neck: Supple, No JVD, Negative Carotid Bruits Chest wall/Lungs: Air entry diminished in bilateral lung bases. No crepitation/rhonchi Cardiovascular: Regular rate and rhythm, Normal S1,S2, systolic murmur over LSB and cardiac apex. Abdomen: Bowel Sounds Present, Soft, Non Tender, Non-Distended : No dysuria. No renal angle tenderness. No suprapubic tenderness. Extremities: Bilateral 3+ lower extremity edema capillary Refill Less than 3 Seconds Skin: No rashes, No breakdown Musculoskeletal: No Tenderness to Palpation of Joints or Extremities Neurological: Cranial nerves II-XII grossly intact, DTR 2+/4. No acute focal neurological deficit. Psych/Mental Status: Normal Affect, Appropriate. Assessment & Plan Assessment/Plan (1) Chronic kidney disease, stage 3b: (2) Acute on chronic heart failure with preserved ejection fraction (HFpEF): (3) Hyperkalemia, diminished renal excretion: (4) Chronic kidney disease (CKD), stage 4: PLAN: Plan This is a 84-year-old female being admitted for progressive worsening of shortness of breath and lower extremity edema for 1 month. 1. Acute HFrEF with chronic lower extremity edema complicated with left moderate pleural effusion: Chest x-ray negative urine shows left moderate to large pleural effusion. proBNP high 11,042. Mildly elevated troponin 35 and 36 no significant delta change and therefore ACS ruled out and patient does not have chest pain pressure or tightness. Baby aspirin added. Patient can have outpatient nuclear stress test once euvolemic/heart failure symptoms are controlled. Patient had ultrasound-guided thoracocentesis, 610 mL of clear fluid was removed. Fluid analysis pending 2D echo shows EF 60% but stage II diastolic dysfunction with elevated LA filling pressure, moderately enlarged LA and mildly enlarged RA therefore acute HFpEF. Started on furosemide 60 mg IV twice daily as patient has CKD stage IV. 04/16: Continue Lasix as above. Microbiology Past 72 Hours 04/17/25 13:50 Fluid - Thoracentesis Fluid Gram Stain - Final 2. Valvular heart disease: Echo also shows mild MR, moderate to severe TR, estimated RVSP 66 mmHg suggestive of high pulmonary hypertension, mild to moderate AI and 1-2+ PI. For now medical management. Continue metoprolol succinate 50 mg twice daily. Hold losartan for hold for serum potassium more than 5.0 3. Left moderately enlarged left pleural effusion: Fluid mononuclear cells 537, polynuclear 14 therefore unlikely infectious causes like empyema or parapneumonic effusion. Fluid LDH 62, fluid glucose 103. 04/18 serum LDH 244, fluid LDH 62, fluid protein not done but seems transudate. 4. Stage IV CKD with hyperkalemia: No history of cirrhosis tests reviewed but looks progressively progress to stage IV most likely due to hypertension. Creatinine clearance is 13.73. Serum potassium 5.6. Bicarb 19.6, anion gap 10. BUN/creatinine 50/2.66. Hold nephrotoxic medications therefore losartan was held 04/16: BUN/creatinine 59/2.66. Patient does not know that she has CKD and was never told about her kidney problem. Discussed with her daughter. Seen by communications instructor. Mild hyperkalemia K5.7, bicarb 18 with anion gap 12. 5. Chronic essential hypertension: On losartan 50 mg daily continued. 6. History of asthma: Controlled. On rescue inhaler and beclomethasone continued DVT prophylaxis heparin 5000 units subcutaneous twice daily. Living will/advanced directive/end of life care: Patient does have living will or advanced directive. She stated her daughter present in the room is power of compliance attorney for health. After discussion of benefits/risks procedures involved with full code, DNR CC arrest and DNR CC, the patient opted for full code for now as she is not sure. She will further clarify her CODE STATUS on the paper and may change to DNR CC arrest with no intubation Patient does want artificial life support including intubation, tube feed, ventilator and/chest compression, central venous catheter, vasopressor and DC shock if needed Total time spent in [id number] encounter in discussion of advanced directive 17 minutes. Laboratory Results 04/17/25 08:42: Lactate Dehydrogenase 244 04/17/25 13:50: Fluid Source THORACENTESIS, Fluid Color LT YEL, Fluid Appearance CLEAR, Fluid Specific Grav 1.017, Fluid WBC 0.551, Fluid RBC 427, Fluid Tot Cell Count 0.654 H, Fld Polynuclear WBCs # 0.014, Fld Polynuclear WBCs % 2.5, Fluid Mononuclear WBCs 0.537, Fld Mononuclear WBCs % 97.5, Fluid Neutrophils 3, Fluid Lymphocytes 37, Fluid Monocytes 7, Fluid Macrophages 53, Fl Pathologist Comment May follow, Fluid Glucose 103, Fluid LDH 62, Fluid Amylase Pending, Fluid Comment 2 SEE COMMENT, Miscellaneous Cytology Pending 04/17/25 16:11: Troponin T High Sens 36 H 04/17/25 18:29: Troponin T Hi Sens 2 Hr 37 H 04/17/25 19:59: Troponin T Hi Sens 4Hr 38 H 04/18/25 06:46: WBC 8.5, RBC 2.64 L, Hgb 8.0 L, Hct 24.6 L, MCV 93.2, MCH 30.3, MCHC 32.5, RDW Std Deviation 48.5 H, RDW Coeff of Last 14.2, Plt Count 167, MPV 9.5, Immature Gran % (Auto) 2.800 H, Neut % (Auto) 82.5 H, Lymph % (Auto) 7.3 L, [place] % (Auto) 7.0, Eos % (Auto) 0.2, Baso % (Auto) 0.2, Absolute Neuts (auto) 7.0, Absolute Lymphs (auto) 0.62 L, Nucleated RBC % 0, Sodium 126 L, Potassium 5.7 H, Chloride 95 L, Carbon Dioxide 18.5 L, Anion Gap 12, BUN 59 H, Creatinine 2.66 H, Estim Creat Clear Calc 13.27 L, Est GFR (MDRD) Non-Af 17 L, B UN/Creatinine Ratio 22.2 H, Glucose 100 H, Calcium 8.0, Triglycerides 142, Cholesterol 171, LDL Cholesterol, Calc 84, VLDL Cholesterol 28, HDL Cholesterol 58, Cholesterol/HDL Ratio 2.94 Clinical Impression(s) from Imaging Studies Chest X-Ray 04/17/25 08:12 IMPRESSION: Moderate left base effusion. Left base consolidation not excluded. Trace right base effusion. Right lower lobe opacity not excluded. No pneumothorax. Reading Location: [id number] Thoracentesis Ultrasound 04/17/25 10:38 IMPRESSION: Successful diagnostic and therapeutic ultrasound-guided left thoracentesis. Reading Location: [facility] Echocardiogram 04/17/25 13:06 Interpretation Summary Mild concentric left ventricular hypertrophy. The LV ejection fraction is 60 %. Stage II LV diastolic dysfunction with elevated left atrial filling pressures The left atrium is moderately enlarged. The right atrium is mildly enlarged. Moderate mitral annular calcification. Mild (1+) mitral valve insufficiency. Moderate to severe tricuspid valve insufficiency. Estimated RVSP 66 mmHg. Aortic valve sclerosis with no stenosis. Mild to moderate aortic valve regurgitation. Mild-Moderate (1-2+) pulmonic valve insufficiency. Ordering Physician: Nestor Rankin Referring Physician: Nestor Rankin Performed By: Alondra Cross and Student Charges/Coding Visit Charges Inpatient E&M: 79003 Subs Hosp L2
[2025-04-18] MEDS: Aspirin E.C. 81 MG Tablet PO (09:07)
[2025-04-18] MEDS: Heparin Injection (Vial) 5,000 UNIT/ML VIAL 5000 UNIT SC ×2 (09:08→21:23)
[2025-04-18] MEDS: Metoprolol(XL)Succ 50 MG Tablet PO ×2 (09:09→21:23)
[2025-04-18] MEDS: Cyanocobalamin 500 MCG Tablet 1000 MCG PO (09:10)
[2025-04-18] MEDS: 0.9% Saline Lock 10 ML Syringe IV ×2 (09:11→18:21)
[2025-04-18] MEDS: Furosemide 100 MG/10 ML Vial 60 MG IV ×2 (09:11→18:20)
[2025-04-18] MEDS: Cholecalciferol (VIT D3) 25 MCG TABLET (1,000 UNITS) PO (10:53)
--- NOTE | 2025-04-18 14:12 | CASEMGMT ---
Noted that PT is recommending HHC for the pt. RN CM to the pt room at this time. Pt's daughter at bedside. Pt states that she wears home oxygen through [employer] @ 2L continuous and that this is relatively new. TC to [employer] to verify current order, no answer. Daughter plans to bring in portability @ DC. Pt states that she would like HHC and the daughter is also agreeable. At this time, the pt denies wanting to review a list of local in network HHC agencies and prefers to go through [facility]. Pt is aware that if [facility] is able to accept, they will likely not be able to start care until next week. Pt states understanding and is OK with this. TC to [facility] and referral made for SN, PT, and OT. Green sheet placed on the chart to facilitate potential weekend DC (per Dr Rankin).
[2025-04-18 15:02] LABS: Protein, Body Fluid 2.1 g/dL (Not Establ.)
--- NOTE | 2025-04-18 18:18 | PCM.CONS.R ---
Assessment & Plan Assessment/Plan (1) Chronic kidney disease (CKD), stage 4: PLAN: Reviewed lab data from [facility] where her primary care physician is. Her baseline creatinine has been between 1.8-1.9 for at least 2 years. She had a lab work done about 2 weeks ago and at that time creatinine was 2.3. This admission creatinine is around 2.6. BNP 11,000. Echocardiogram reviewed Chest x-ray with pleural effusion status post thoracocentesis Will check your urine analysis, renal ultrasound Continue Lasix 60 mg IV twice daily for now. Discussed with family at bedside Discussed with hospitalist HPI Consult Data Date of Consult: 04/18/25 HPI Narrative Reason for Consultation: SONIA HPI Narrative: BRENDA JULIAN, is a 84 F who presents To the hospital with shortness of breath. Nephrology on consultation in view of renal failure. She says she has had shortness of breath for the last 2 to 3 weeks. Associated lower extremity edema, about 10 to 15 pound weight gain. She recently had prednisone due to respiratory infection. No other medication changes. No urinary complaints. Her son had kidney failure. [facility] Medical History Stage 3b chronic kidney disease (CKD) Essential (primary) hypertension Asthma Hypertensive kidney disease with chronic kidney disease stage III Home Medications Medication Instructions Recorded Last Taken Type albuterol sulfate 90 mcg/actuation 1 - 2 puff inhalation 4X/DAY PRN 04/17/25 04/15/25 History aerosol inhaler wheezing amlodipine 10 mg tablet 10 mg PO DAILY 04/17/25 04/16/25 History amoxicillin 500 mg-potassium 1 tab PO Q12H 04/17/25 04/16/25 History clavulanate 125 mg tablet beclomethasone dipropionate 80 1 - 2 inh inhalation BID 04/17/25 Unknown History mcg/actuation HFA breath activated aerosol (Qvar RediHaler) cholecalciferol (vitamin D3) 25 25 mcg PO DAILY 04/17/25 04/16/25 History mcg (1,000 unit) tablet (Vitamin D3) cyanocobalamin (vitamin B-12) 1,000 mcg PO DAILY 04/17/25 04/16/25 History 1,000 mcg tablet hydrochlorothiazide 12.5 mg tablet 12.5 mg PO DAILY 04/17/25 04/16/25 History levothyroxine 50 mcg tablet 50 mcg PO DAILY disorder of 04/17/25 04/16/25 History thyroid gland losartan 50 mg tablet 50 mg PO DAILY 04/17/25 04/16/25 History metoprolol succinate 50 mg 50 mg PO BID 04/17/25 04/16/25 History tablet,extended release 24 hr prednisone 10 mg tablet 10 mg PO DAILY 04/17/25 04/16/25 History Allergy/AdvReac Type Severity Reaction Status Date / Time No Known Allergies Allergy Verified 04/17/25 07:52 Surgical History Hx of appendectomy Social History Smoking Status: Never smoker ROS ROS Narrative negative except above Physical Exam Narrative no obvious distress no pallor no icterus no JVD s1s2 no murmurs lungs clear abdomen soft no organomegaly no edema no cyanosis Lab / Micro Data 04/18/25 06:46 04/18/25 06:46 Labs: Laboratory Results - last 24 hr 04/17/25 13:50: Fluid Source THORACENTESIS, Fluid Color LT YEL, Fluid Appearance CLEAR, Fluid Specific Grav 1.017, Fluid WBC 0.551, Fluid RBC 427, Fluid Tot Cell Count 0.654 H, Fld Polynuclear WBCs # 0.014, Fld Polynuclear WBCs % 2.5, Fluid Mononuclear WBCs 0.537, Fld Mononuclear WBCs % 97.5, Fluid Neutrophils 3, Fluid Lymphocytes 37, Fluid Monocytes 7, Fluid Macrophages 53, Fl Pathologist Comment May follow, Fluid Total Protein 2.1, Fluid Comment 2 SEE COMMENT 04/17/25 18:29: Troponin T Hi Sens 2 Hr 37 H 04/17/25 19:59: Troponin T Hi Sens 4Hr 38 H 04/18/25 06:46: WBC 8.5, RBC 2.64 L, Hgb 8.0 L, Hct 24.6 L, MCV 93.2, MCH 30.3, MCHC 32.5, RDW Std Deviation 48.5 H, RDW Coeff of Last 14.2, Plt Count 167, MPV 9.5, Immature Gran % (Auto) 2.800 H, Neut % (Auto) 82.5 H, Lymph % (Auto) 7.3 L, [place] % (Auto) 7.0, Eos % (Auto) 0.2, Baso % (Auto) 0.2, Absolute Neuts (auto) 7.0, Absolute Lymphs (auto) 0.62 L, Nucleated RBC % 0, Sodium 126 L, Potassium 5.7 H, Chloride 95 L, Carbon Dioxide 18.5 L, Anion Gap 12, BUN 59 H, Creatinine 2.66 H, Estim Creat Clear Calc 13.27 L, Est GFR (MDRD) Non-Af 17 L, BUN/Creatinine Ratio 22.2 H, Glucose 100 H, Calcium 8.0, Triglycerides 142, Cholesterol 171, LDL Cholesterol, Calc 84, VLDL Cholesterol 28, HDL Cholesterol 58, Cholesterol/HDL Ratio 2.94 Micro: Microbiology 04/17/25 13:50 Fluid - Thoracentesis Fluid Gram Stain - Final Rhythm Strip Rhythm Strip: Sinus Rhythm Rate: 60 Ectopy: None
[2025-04-18 19:33] LABS: Mucous, Urine 0 SEEN /hpf (<or=2+); Red Blood Cells-Urine 0 SEEN /hpf (0-5)
[2025-04-18 20:04] LABS: Color, Urine Yellow (Yellow); Glucose, Dipstick Normal (Normal); Ketone-Dipstick Negative (Negative); Leukocyte Esterase-Dipstick Negative /ul (Negative); Nitrite-Dipstick Negative (Negative); Occult Blood-Urine 10 /ul (Negative); Protein-Dipstick 100 mg/dl (Negative); Specific Gravity, Urine 1.015 (1.002-1.030); Urine Bilirubin Dipstick Negative (Negative); Urine Clarity Clear (Clear); Urine Urobilinogen Normal (Normal)
[2025-04-18 21:07] LABS: Hyaline Cast 0-5 SEEN /lpf (0-5); Squamous Epithelial Cells - UA 0-5 SEEN /hpf (5-10); White Blood Cells 0-5 SEEN /hpf (0-5)
[2025-04-18 21:11] LABS: Bacteria RARE /hpf (None Seen)
[2025-04-18 21:12] LABS: Transitional Epithelial - Ur 0-5 SEEN /hpf (0-5)
[2025-04-19] VITALS (10 sets, daily range): BP systolic 158–172; BP diastolic 52–57; PULSE 68–79; RESP 16–18; TEMP 36.8–37.4; O2SAT 91–100; BMI 30.2
[2025-04-19] MEDS: Levothyroxine 50 MCG Tablet PO (05:50)
[2025-04-19 06:31] LABS: Absolute Lymphocyte Count 0.74 X10^3/uL (0.83-4.51); Absolute Neutrophil Count 6.7 X10^3/uL (2.0-7.7); Basophil# 0.04 X10^3/uL; Basophil% 0.5 % (0-1); Eosinophil# 0.06 X10^3/uL; Eosinophils% 0.7 % (0-5); Hematocrit 24.6 % (37-47); Lymphocyte # 0.74 X10^3/ul (0.83-4.51); Lymphocyte % 8.8 % (19-41); Mean Corp Hgb Conc 32.5 g/dL (32-36); Mean Corpuscular Hgb 30.1 pg (27.0-32.0); Mean Corpuscular Volume 92.5 fL (81-99); Mean Platelet Vol. 9.4 fl (6.2-12.0); Monocyte# 0.65 X10^3/uL; Monocyte% 7.7 % (0-10); NRBC Flagged by Analyzer 0 % (0-5); Neutrophil # 6.67 X10^3/uL (2.7-7.7); Neutrophil % 78.9 % (47-70); Platelet Count 157 K/mm3 (150-450); RBC Distribution Width CV 14.3 % (11.6-14.6); RBC Distribution Width SD 48.3 fl (35.1-43.9); Red Blood Count 2.66 M/mm3 (4.2-5.4); White Blood Count 8.5 K/mm3 (4.4-11.0)
[2025-04-19 06:54] LABS: Anion Gap 12 (5-15); BUN 58 mg/dL (4-19); BUN/Creat Ratio 24.3 RATIO (10-20); Calcium,Total 8.2 mg/dL (7.6-11.0); Carbon Dioxide 21.6 mmol/L (21.0-32.0); Chloride 93 mmol/L (98-108); EST Glomerular Filtration Rate 19 (>60); Glucose 88 mg/dL (70-99); Potassium 5.6 mmol/L (3.3-5.1); Sodium Level 126 mmol/L (133-145)
[2025-04-19] MEDS: Budesonide Respules 0.5 MG/2 ML AMPUL.NEB. INHALATION ×2 (07:04→20:01)
[2025-04-19] MEDS: Cholecalciferol (VIT D3) 25 MCG TABLET (1,000 UNITS) PO (09:07)
[2025-04-19] MEDS: Furosemide 100 MG/10 ML Vial 60 MG IV ×2 (09:08→18:40)
[2025-04-19] MEDS: Heparin Injection (Vial) 5,000 UNIT/ML VIAL 5000 UNIT SC ×2 (09:08→21:12)
[2025-04-19] MEDS: Cyanocobalamin 500 MCG Tablet 1000 MCG PO (09:08)
[2025-04-19] MEDS: Aspirin E.C. 81 MG Tablet PO (09:08)
[2025-04-19] MEDS: Metoprolol(XL)Succ 50 MG Tablet PO ×2 (09:08→21:12)
--- NOTE | 2025-04-19 12:50 | PCM.PN.HOSP ---
Reason for Visit Reason for Visit: Diagnoses Hyperkalemia (04/17/25) Acute on chronic diastolic (congestive) heart failure (04/17/25) Chronic kidney disease, stage 3b (04/17/25) Chronic kidney disease, stage 4 (severe) (04/17/25) Objective Data Objective Data Vital Signs: Vital Signs Temp Pulse Resp BP Pulse Ox O2 Del Method O2 Flow Rate 98.9 F 75 18 159/52 H 91 Nasal Cannula 2 04/19/25 08:51 04/19/25 09:08 04/19/25 08:51 04/19/25 08:51 04/19/25 08:51 04/19/25 08:51 04/19/25 08:51 Oxygen Flow Rate (L/min) 2 Oxygen Delivery Method Nasal Cannula Weight: 154 lb 8.705 oz Body Mass Index (BMI) 30.2 Intake & Output: Intake and Output for Last 24 Hours 04/17/25 04/18/25 04/19/25 23:59 23:59 23:59 Intake Total 300 / 650 660 / 660 0 / 0 Output Total 610 / 610 950 / 950 450 / 450 Balance -310 / 40 -290 / -290 -450 / -450 Lab / Micro Data 04/19/25 05:45 04/19/25 05:45 Labs: Laboratory Results - last 24 hr 04/17/25 13:50: Fluid Total Protein 2.1 04/18/25 19:20: Urine Color Yellow, Urine Clarity Clear, Urine pH 6.0, Ur Specific [place] 1.015, Urine Protein 100 H, Urine Glucose (UA) Normal, Urine Ketones Negative, Urine Occult Blood 10 H, Urine Nitrite Negative, Urine Bilirubin Negative, Urine Urobilinogen Normal, Ur Leukocyte Esterase Negative, Urine RBC 0 SEEN, Urine WBC 0-5 SEEN, Ur Squamous Epith Cells 0-5 SEEN, Ur Transition Epith Cell 0-5 SEEN, Urine Bacteria RARE, Hyaline Casts 0-5 SEEN, Urine Mucus 0 SEEN 04/19/25 05:45: WBC 8.5, RBC 2.66 L, Hgb 8.0 L, Hct 24.6 L, MCV 92.5, MCH 30.1, MCHC 32.5, RDW Std Deviation 48.3 H, RDW Coeff of Last 14.3, Plt Count 157, MPV 9.4, Immature Gran % (Auto) 3.400 H, Neut % (Auto) 78.9 H, Lymph % (Auto) 8.8 L, Crawford % (Auto) 7.7, Eos % (Auto) 0.7, Baso % (Auto) 0.5, Absolute Neuts (auto) 6.7, Absolute Lymphs (auto) 0.74 L, Nucleated RBC % 0, Sodium 126 L, Potassium 5.6 H, Chloride 93 L, Carbon Dioxide 21.6, Anion Gap 12, BUN 58 H, Creatinine 2.40 H, Estim Creat Clear Calc 14.70 L, Est GFR (MDRD) Non-Af 19 L, BUN/Creatinine Ratio 24.3 H, Glucose 88, Calcium 8.2 Micro: Microbiology 04/17/25 13:50 Fluid - Thoracentesis Fluid Gram Stain - Final 04/17/25 13:50 Fluid - Thoracentesis Fluid Body Fluid Culture - Preliminary No growth-Final to follow Rhythm Strip Rhythm Strip: Sinus Rhythm Rate: 60 Ectopy: None Physical Exam Narrative Seen and examined. Mild short of breath. Leg swelling is better. No chest pain. Patient is daughter present in the room. Physical exam General: Alert, Oriented x3, Cooperative. BMI 30.5 kg/m² HEENT: Atraumatic, PERRLA, EOMI, Normocephalic. Oral: No Gingival or Mucosal Lesions/ Ulcerations Neck: Supple, No JVD, Negative Carotid Bruits Chest wall/Lungs: Air entry diminished in bilateral lung bases. No crepitation/rhonchi Cardiovascular: Regular rate and rhythm, Normal S1,S2, systolic murmur over LSB and cardiac apex. Abdomen: Bowel Sounds Present, Soft, Non Tender, Non-Distended : No dysuria. No renal angle tenderness. No suprapubic tenderness. Extremities: Bilateral 2+ lower extremity edema, improving capillary Refill Less than 3 Seconds Skin: No rashes, No breakdown Musculoskeletal: No Tenderness to Palpation of Joints or Extremities Neurological: Cranial nerves II-XII grossly intact, DTR 2+/4. No acute focal neurological deficit. Psych/Mental Status: Normal Affect, Appropriate. Assessment & Plan Assessment/Plan (1) Chronic kidney disease, stage 3b: (2) Acute on chronic heart failure with preserved ejection fraction (HFpEF): (3) Hyperkalemia, diminished renal excretion: (4) Chronic kidney disease (CKD), stage 4: PLAN: Plan This is a 84-year-old female being admitted for progressive worsening of shortness of breath and lower extremity edema for 1 month. 1. Acute HFrEF with chronic lower extremity edema complicated with left moderate pleural effusion: Chest x-ray negative urine shows left moderate to large pleural effusion. proBNP high 11,042. Mildly elevated troponin 35 and 36 no significant delta change and therefore ACS ruled out and patient does not have chest pain pressure or tightness. Baby aspirin added. Patient can have outpatient nuclear stress test once euvolemic/heart failure symptoms are controlled. Patient had ultrasound-guided thoracocentesis, 610 mL of clear fluid was removed. Fluid analysis pending 2D echo shows EF 60% but stage II diastolic dysfunction with elevated LA filling pressure, moderately enlarged LA and mildly enlarged RA therefore acute HFpEF. Started on furosemide 60 mg IV twice daily as patient has CKD stage IV. 04/16: Continue Lasix as above. 04/17: Continue IV Lasix 2. Valvular heart disease: Echo also shows mild MR, moderate to severe TR, estimated RVSP 66 mmHg suggestive of high pulmonary hypertension, mild to moderate AI and 1-2+ PI. For now medical management. Continue metoprolol succinate 50 mg twice daily. Hold losartan for hold for serum potassium more than 5.0 3. Left moderately enlarged left pleural effusion: Fluid mononuclear cells 537, polynuclear 14 therefore unlikely infectious causes like empyema or parapneumonic effusion. Fluid LDH 62, fluid glucose 103. 04/18 serum LDH 244, fluid LDH 62, fluid protein not done but seems transudate. 04/19: Fluid protein 2.1 serum total protein 6.5 therefore it is less than 50%. Meets the criteria of translate. 4. Acute on chronic stage IV CKD with hyperkalemia: No history of cirrhosis tests reviewed but looks progressively progress to stage IV most likely due to hypertension. Creatinine clearance is 13.73. Serum potassium 5.6. Bicarb 19.6, anion gap 10. BUN/creatinine 50/2.66. Hold nephrotoxic medications therefore losartan was held 04/16: BUN/creatinine 59/2.66. Patient does not know that she has CKD and was never told about her kidney problem. Discussed with her daughter. Seen by salesperson [employer]. Mild hyperkalemia K5.7, bicarb 18 with anion gap 12. 04/17 discussed with the salesperson [employer]. Creatinine 2.4 slightly better than yesterday. Continue IV diuresis. His baseline creatinine has been between 1.8-1.9 last 2 years and lab work done about 2 weeks ago showed creatinine was 2.3. Admission creatinine was 2.6 therefore meets criteria for acute on chronic CKD stage IV. 5. Chronic essential hypertension: On losartan 50 mg daily continued. 6. History of asthma: Controlled. On rescue inhaler and beclomethasone continued DVT prophylaxis heparin 5000 units subcutaneous twice daily. Living will/advanced directive/end of life care: Patient does have living will or advanced directive. She stated her daughter present in the room is power of employment law attorney for health. After discussion of benefits/risks procedures involved with full code, DNR CC arrest and DNR CC, the patient opted for full code for now as she is not sure. She will further clarify her CODE STATUS on the paper and may change to DNR CC arrest with no intubation Patient does want artificial life support including intubation, tube feed, ventilator and/chest compression, central venous catheter, vasopressor and DC shock if needed Total time spent in [id number] encounter in discussion of advanced directive 17 minutes. Microbiology Past 72 Hours 04/17/25 13:50 Fluid - Thoracentesis Fluid Gram Stain - Final 04/17/25 13:50 Fluid - Thoracentesis Fluid Body Fluid Culture - Preliminary No growth-Final to follow Laboratory Results 04/17/25 13:50: Fluid Total Protein 2.1 04/18/25 19:20: Urine Color Yellow, Urine Clarity Clear, Urine pH 6.0, Ur Specific [place] 1.015, Urine Protein 100 H, Urine Glucose (UA) Normal, Urine Ketones Negative, Urine Occult Blood 10 H, Urine Nitrite Negative, Urine Bilirubin Negative, Urine Urobilinogen Normal, Ur Leukocyte Esterase Negative, Urine RBC 0 SEEN, Urine WBC 0-5 SEEN, Ur Squamous Epith Cells 0-5 SEEN, Ur Transition Epith Cell 0-5 SEEN, Urine Bacteria RARE, Hyaline Casts 0-5 SEEN, Urine Mucus 0 SEEN 04/19/25 05:45: WBC 8.5, RBC 2.66 L, Hgb 8.0 L, Hct 24.6 L, MCV 92.5, MCH 30.1, MCHC 32.5, RDW Std Deviation 48.3 H, RDW Coeff of Last 14.3, Plt Count 157, MPV 9.4, Immature Gran % (Auto) 3.400 H, Neut % (Auto) 78.9 H, Lymph % (Auto) 8.8 L, Crawford % (Auto) 7.7, Eos % (Auto) 0.7, Baso % (Auto) 0.5, Absolute Neuts (auto) 6.7, Absolute Lymphs (auto) 0.74 L, Nucleated RBC % 0, Sodium 126 L, Potassium 5.6 H, Chloride 93 L, Carbon Dioxide 21.6, Anion Gap 12, BUN 58 H, Creatinine 2.40 H, Estim Creat Clear Calc 14.70 L, Est GFR (MDRD) Non-Af 19 L, BUN/Creatinine Ratio 24.3 H, Glucose 88, Calcium 8.2 Clinical Impression(s) from Imaging Studies Chest X-Ray 04/17/25 08:12 IMPRESSION: Moderate left base effusion. Left base consolidation not excluded. Trace right base effusion. Right lower lobe opacity not excluded. No pneumothorax. Reading Location: [id number] Thoracentesis Ultrasound 04/17/25 10:38 IMPRESSION: Successful diagnostic and therapeutic ultrasound-guided left thoracentesis. [id number] Echocardiogram 04/17/25 13:06 Interpretation Summary Mild concentric left ventricular hypertrophy. The LV ejection fraction is 60 %. Stage II LV diastolic dysfunction with elevated left atrial filling pressures The left atrium is moderately enlarged. The right atrium is mildly enlarged. Moderate mitral annular calcification. Mild (1+) mitral valve insufficiency. Moderate to severe tricuspid valve insufficiency. Estimated RVSP 66 mmHg. Aortic valve sclerosis with no stenosis. Mild to moderate aortic valve regurgitation. Mild-Moderate (1-2+) pulmonic valve insufficiency. Ordering Physician: Nestor Rankin Referring Physician: Nestor Rankin Performed By: Alondra Cross and Student Charges/Coding Visit Charges Inpatient E&M: 21589 Subs Hosp L2
[2025-04-20 03:00] VITALS: BP 160/62; PULSE 67; RESP 18; TEMP 37.1; O2SAT 94
[2025-04-20 03:11] VITALS: BMI 30.1
[2025-04-20] MEDS: Levothyroxine 50 MCG Tablet PO (06:09)
--- NOTE | 2025-04-20 07:00 | US_ITS ---
PROCEDURE: KIDNEY AND BLADDER 04/20/2025 REASON FOR EXAM: SONIA TECHNIQUE: KIDNEY AND BLADDER COMPARISON: None provided. FINDINGS: Kidneys: Multiple nonobstructive bilateral renal calculi are seen. Multiple small bilateral simple appearing renal cysts are also noted. No renal mass is noted. Clifford: No hydronephrosis is seen on either side. Other: No perinephric fluid collections evident. The urinary bladder is incompletely filled, but without apparent abnormality. Ureteral jets are not visualized. Estimated volume of 371.5 mL. RIGHT Kidney Size: 9.8 x 5.6 x 4.1 cm Volume: 117.5 mL mL Cortical Thickness (if discernible): 12 mm (>6mm is normal) LEFT Kidney Size: 11.3 x 5.1 x 4.1 cm Volume: 123 mL mL Cortical Thickness (if discernible): 10 mm (>6mm is normal) US/Kidney and Bladder IMPRESSION: 1. No evidence of hydronephrosis. 2. Multiple bilateral nonobstructive renal calculi. 3. Multiple simple appearing bilateral renal cysts. Reading Location: [place] [id number]
[2025-04-20 07:13] LABS: Anion Gap 10 (5-15); BUN 57 mg/dL (4-19); BUN/Creat Ratio 27.5 RATIO (10-20); Calcium,Total 8.4 mg/dL (7.6-11.0); Carbon Dioxide 24.3 mmol/L (21.0-32.0); Chloride 97 mmol/L (98-108); Creatinine, Serum 2.08 mg/dL (0.70-1.20); EST Glomerular Filtration Rate 23 (>60); Estimated Creatinine Clearance 16.95 ml/min (50-250); Glucose 91 mg/dL (70-99); Potassium 5.3 mmol/L (3.3-5.1); Sodium Level 130 mmol/L (133-145)
[2025-04-20] MEDS: Budesonide Respules 0.5 MG/2 ML AMPUL.NEB. INHALATION (07:43)
[2025-04-20 07:44] VITALS: PULSE 68; RESP 16; O2SAT 95
[2025-04-20 08:20] VITALS: BP 168/64; PULSE 66; RESP 20; TEMP 36.9; O2SAT 97
[2025-04-20] MEDS: Aspirin E.C. 81 MG Tablet PO (09:55)
[2025-04-20] MEDS: Heparin Injection (Vial) 5,000 UNIT/ML VIAL 5000 UNIT SC (09:56)
[2025-04-20] MEDS: Furosemide 100 MG/10 ML Vial 60 MG IV (09:57)
[2025-04-20 09:58] VITALS: BP 168/64; PULSE 66
[2025-04-20] MEDS: Metoprolol(XL)Succ 50 MG Tablet PO (09:58)
[2025-04-20] MEDS: 0.9% Saline Lock 10 ML Syringe IV (09:59)
[2025-04-20] MEDS: Cyanocobalamin 500 MCG Tablet 1000 MCG PO (09:59)
[2025-04-20] MEDS: Cholecalciferol (VIT D3) 25 MCG TABLET (1,000 UNITS) PO (09:59)
[2025-04-20 11:10] LABS: Pathologist Comment/Body Fluid Reviewed
--- NOTE | 2025-04-20 11:30 | CASEMGMT ---
Addendum entered by Tracey Mckeon 04/20/25 15:21: Patient has order for discharge. TIFFANI WOODS in to updated patient regarding [facility] acceptance and start of care for tomorrow, daughter at bedside. Patient states she needs FWW at discharge, patient prefers [facility]. Patient denies further needs and had no further questions or concerns. TIFFANI WOODS received script for FWW and referral sent to [facility] with arrangements for walker to be delivered to patient's room. TIFFANI WOODS updated discharge plan. Original Note: TIFFANI WOODS called [facility] to check on status of referral. Patient has been accepted by [facility] with start of care planned for Sunday. CM will continue to follow this patient and plan for a safe discharge.
[2025-04-20 11:37] VITALS: O2SAT 87; O2SAT 90; O2SAT 98
--- NOTE | 2025-04-20 13:05 | DCINST_ITS ---
Discharge Instructions Diet Discharge Diet: Low fat / Low cholesterol, 2000 mg Sodium Diet and - (FLUID restriction, 1800 ml) DC O2, CPAP, BIPAP needs Home O2 Discharge instructions: Yes Type of respiratory needs?: Oxygen Oxygen frequency: Continuous Continuous oxygen liters per minute: 2 Dressing / Incision Discharge Activity: Return to Normal Activity Weight Bearing Status: Weight bearing as tolerated Dressing / Incision Call your doctor if you observe: Fever of 101 or Higher, Coldness, Increased Pain, Numbness or Tingling, Change in Color, Inability to urinate, Inability to have a bowel movement, Shortness of breath, Dizziness, Fainting spells, Swelling in the ankles, Chest pain, Prolonged hiccupping, Increased palpitations (irregular heartbeat) and Calf discomfort Follow Up Care When: IN 2 WEEKS Test Results: Test results from this visit will be discussed in further detail at your follow- up appointment, if applicable. Discharge Plan Admission Admit Date/Time: 04/17/25 10:36 Primary Reason for Your Visit: CHF exacerbation, left pleural effusion Attending Provider: Nestor Rankin Primary Care Provider: Ally Gonzalez Consulting Providers: Chris Mane Discharge Orders/Prescriptions Prescriptions: New furosemide [Lasix] 40 mg tablet 60 mg PO BID 30 Days Qty: 180 1RF Continued albuterol sulfate 90 mcg/actuation HFA aerosol inhaler 1 - 2 puff inhalation 4X/DAY PRN (Reason: wheezing) metoprolol succinate 50 mg tablet extended release 24 hr 50 mg PO BID cyanocobalamin (vitamin B-12) 1,000 mcg tablet 1,000 mcg PO DAILY levothyroxine 50 mcg tablet 50 mcg PO DAILY cholecalciferol (vitamin D3) [Vitamin D3] 25 mcg (1,000 unit) tablet 25 mcg PO DAILY Qvar RediHaler 80 mcg/actuation HFA aerosol breath activated 1 - 2 inh inhalation BID Held losartan 50 mg tablet 50 mg PO DAILY Hold Instructions: Hold for 1 week Discontinued amlodipine 10 mg tablet 10 mg PO DAILY amoxicillin-pot clavulanate 500-125 mg tablet 1 tab PO Q12H Rx Instructions: FOR 7 DAYS; STARTED ON 04/13/25 prednisone 10 mg tablet 10 mg PO DAILY hydrochlorothiazide 12.5 mg tablet 12.5 mg PO DAILY Referrals / Follow Up: Chris Mane MD [Med Staff - Consulting] - Within 1 Week Ally Gonzalez MD [Primary Care Provider] - Carl Landin MD [Med Staff - Active Staff] - Within 1 Month (Acute on chronic combined heart failure) Disposition Disposition (needs filled in before D/C Order can be placed): Home, Self Care
--- NOTE | 2025-04-20 13:19 | PCM.PN.REN ---
Subjective Subjective Patient sitting in recliner chair, daughter at bedside. No complaints today and feels swelling improved. Objective Data Objective Data Vital Signs: Vital Signs Temp Pulse Resp BP Pulse Ox O2 Del Method O2 Flow Rate 98.5 F 66 20 H 168/64 H 97 Nasal Cannula 2 04/20/25 08:20 04/20/25 09:58 04/20/25 08:20 04/20/25 09:58 04/20/25 08:20 04/20/25 08:20 04/20/25 08:20 Oxygen Flow Rate (L/min) 2 Oxygen Delivery Method Nasal Cannula Weight: 70 kg Body Mass Index (BMI) 30.1 Intake & Output: Intake and Output for Last 24 Hours 04/18/25 04/19/25 04/20/25 23:59 23:59 23:59 Intake Total 660 / 660 240 / 240 220 / 220 Output Total 950 / 950 2160 / 2660 500 / 500 Balance -290 / -290 -1920 / -2420 -280 / -280 Lab / Micro Data 04/19/25 05:45 04/20/25 06:16 Labs: Laboratory Results - last 24 hr 04/17/25 13:50: Fl Pathologist Comment Reviewed 04/20/25 06:16: Sodium 130 L, Potassium 5.3 H, Chloride 97 L, Carbon Dioxide 24.3, Anion Gap 10, BUN 57 H, Creatinine 2.08 H, Estim Creat Clear Calc 16.95 L, Est GFR (MDRD) Non-Af 23 L, BUN/Creatinine Ratio 27.5 H, Glucose 91, Calcium 8.4 Micro: Microbiology 04/17/25 13:50 Fluid - Thoracentesis Fluid Gram Stain - Final 04/17/25 13:50 Fluid - Thoracentesis Fluid Body Fluid Culture - Final Culture exhibits no growth. 04/17/25 13:50 Fluid - Thoracentesis Fluid Anaerobic Culture - Preliminary No growth in 48 hours. Rhythm Strip Rhythm Strip: Sinus Rhythm Rate: 60 Ectopy: None Physical Exam Narrative alert and oriented no obvious distress no JVD s1s2 no murmurs lungs clear abdomen soft, non-tender ++ pitting edema b/l legs Assessment & Plan Assessment/Plan (1) Chronic kidney disease (CKD), stage 4: PLAN: Reviewed lab data from [facility] where her primary care physician is. Her baseline creatinine has been between 1.8-1.9 for at least 2 years. She had a lab work done about 2 weeks ago and at that time creatinine was 2.3. Admission creatinine 2.6--> today SCr 2.08 BNP 11,000. Echocardiogram EF 60%, stage II LV diastolic dysfunction, moderate to severe tricuspid valve insufficiency, aortic valve sclerosis with no stenosis Admission potassium 5.6, down to 5.3 today. Losartan on hold. Low potassium diet restriction. Chest x-ray with pleural effusion status post thoracocentesis. Patient on O2 2L NC, states wears O2 at home. Renal ultrasound pending on Lasix 60 mg IV twice daily. Net negative almost 3 L. Admission weight 75 kg, current weight around 70 kg. Discussed with daughter at bedside. Will plan for hospital follow-up in [place] office. Assessment and plan reviewed with Dr. Mane.
[2025-04-20 13:45] VITALS: BP 157/53; PULSE 61; RESP 18; TEMP 36.8; O2SAT 98
--- NOTE | 2025-04-20 13:46 | PCM.DC.SUM ---
Providers Date of Admission: 04/17/25 Date of Discharge: 04/20/25 Primary Care Physician: Dr. Ally Gonzalez MD Consultations 04/17/25 17:05 Consult: Nephrology Routine Consulting Provider: Chris Mane Reason for Consult: CKD stage 4, ACUTE HFeEF EMERGENT Consult: No MD Notified: Yes Date Notified: 04/17/25 Time Notified: 17:05 Method of Notification: Verbal Reason For Visit: CHF EXA, LEFT MOD EFFUSION Diagnosis Discharge Diagnosis (1) Chronic kidney disease (CKD), stage 4: Status: Chronic Code(s): N18.4 - Chronic kidney disease, stage 4 (severe) Plan This is a 84-year-old female being admitted for progressive worsening of shortness of breath and lower extremity edema for 1 month. 1. Acute HFrEF with chronic lower extremity edema complicated with left moderate pleural effusion: Chest x-ray negative urine shows left moderate to large pleural effusion. proBNP high 11,042. Mildly elevated troponin 35 and 36 no significant delta change and therefore ACS ruled out and patient does not have chest pain pressure or tightness. Baby aspirin added. Patient can have outpatient nuclear stress test once euvolemic/heart failure symptoms are controlled. Patient had ultrasound-guided thoracocentesis, 610 mL of clear fluid was removed. Fluid analysis pending 2D echo shows EF 60% but stage II diastolic dysfunction with elevated LA filling pressure, moderately enlarged LA and mildly enlarged RA therefore acute HFpEF. Started on furosemide 60 mg IV twice daily as patient has CKD stage IV. 04/16: Continue Lasix as above. 04/17: Continue IV Lasix 04/18: Patient is on 2 L of oxygen for last 2 days. Lungs are clear. She still has bilateral leg swelling but has improved. Discussed with the webbing weaver. Discharged on furosemide 60 mg p.o. twice daily. Keep holding losartan for 1 more week. BMP in 1 week and follow-up with the webbing weaver. 2. Valvular heart disease: Echo also shows mild MR, moderate to severe TR, estimated RVSP 66 mmHg suggestive of high pulmonary hypertension, mild to moderate AI and 1-2+ PI. For now medical management. Continue metoprolol succinate 50 mg twice daily. Hold losartan for hold for serum potassium more than 5.0 3. Left moderately enlarged left pleural effusion: Fluid mononuclear cells 537, polynuclear 14 therefore unlikely infectious causes like empyema or parapneumonic effusion. Fluid LDH 62, fluid glucose 103. 04/18 serum LDH 244, fluid LDH 62, fluid protein not done but seems transudate. 04/19: Fluid protein 2.1 serum total protein 6.5 therefore it is less than 50%. Meets the criteria of translate. 4. Acute on chronic stage IV CKD with hyperkalemia: No history of cirrhosis tests reviewed but looks progressively progress to stage IV most likely due to hypertension. Creatinine clearance is 13.73. Serum potassium 5.6. Bicarb 19.6, anion gap 10. BUN/creatinine 50/2.66. Hold nephrotoxic medications therefore losartan was held 04/16: BUN/creatinine 59/2.66. Patient does not know that she has CKD and was never told about her kidney problem. Discussed with her daughter. Seen by webbing weaver. Mild hyperkalemia K5.7, bicarb 18 with anion gap 12. 04/17 discussed with the webbing weaver. Creatinine 2.4 slightly better than yesterday. Continue IV diuresis. His baseline creatinine has been between 1.8-1.9 last 2 years and lab work done about 2 weeks ago showed creatinine was 2.3. Admission creatinine was 2.6 therefore meets criteria for acute on chronic CKD stage IV. 04/18: BUN/creatinine improving to 57/2.08. Renal ultrasound is done, the report is pending because of some technical glitch. I called the radiologist/urologist Dr. Holland and got the verbal report that patient does not have hydronephrosis but bilateral nonobstructive renal parenchymal calculi. Rest as mentioned above. Follow-up with webbing weaver. 5. Chronic essential hypertension: On losartan 50 mg daily continued. 04/20: Amlodipine is discontinued patient has leg swelling. On furosemide. 6. History of asthma: Controlled. On rescue inhaler and beclomethasone continued DVT prophylaxis heparin 5000 units subcutaneous twice daily. Patient's medications were discussed including furosemide. Advised follow-up with webbing weaver in 1 week with BMP. Follow-up in [place] [facility]. Discharge medication reconciliation done. Discharge follow-up instructions completed. Discharge process discussed with the patient and all questions were answered to patient's satisfaction. Follow with PCP in 1 to 2 weeks Total time spent, exact 35 minutes on discharge meds reconciliation, examination, coordination of care with nurses and ancillary staff, review of imaging and blood test and discussion with the patient on follow-up instructions. Living will/advanced directive/end of life care: Patient does have living will or advanced directive. She stated her daughter present in the room is power of contracts attorney for health. After discussion of benefits/risks procedures involved with full code, DNR CC arrest and DNR CC, the patient opted for full code for now as she is not sure. She will further clarify her CODE STATUS on the paper and may change to DNR CC arrest with no intubation Patient does want artificial life support including intubation, tube feed, ventilator and/chest compression, central venous catheter, vasopressor and DC shock if needed Total time spent in [id number] encounter in discussion of advanced directive 17 minutes. Microbiology Past 72 Hours 04/17/25 13:50 Fluid - Thoracentesis Fluid Gram Stain - Final 04/17/25 13:50 Fluid - Thoracentesis Fluid Body Fluid Culture - Preliminary No growth-Final to follow Laboratory Results 04/17/25 13:50: Fluid Total Protein 2.1 04/18/25 19:20: Urine Color Yellow, Urine Clarity Clear, Urine pH 6.0, Ur Specific [place] 1.015, Urine Protein 100 H, Urine Glucose (UA) Normal, Urine Ketones Negative, Urine Occult Blood 10 H, Urine Nitrite Negative, Urine Bilirubin Negative, Urine Urobilinogen Normal, Ur Leukocyte Esterase Negative, Urine RBC 0 SEEN, Urine WBC 0-5 SEEN, Ur Squamous Epith Cells 0-5 SEEN, Ur Transition Epith Cell 0-5 SEEN, Urine Bacteria RARE, Hyaline Casts 0-5 SEEN, Urine Mucus 0 SEEN 04/19/25 05:45: WBC 8.5, RBC 2.66 L, Hgb 8.0 L, Hct 24.6 L, MCV 92.5, MCH 30.1, MCHC 32.5, RDW Std Deviation 48.3 H, RDW Coeff of Last 14.3, Plt Count 157, MPV 9.4, Immature Gran % (Auto) 3.400 H, Neut % (Auto) 78.9 H, Lymph % (Auto) 8.8 L, Bacon % (Auto) 7.7, Eos % (Auto) 0.7, Baso % (Auto) 0.5, Absolute Neuts (auto) 6.7, Absolute Lymphs (auto) 0.74 L, Nucleated RBC % 0, Sodium 126 L, Potassium 5.6 H, Chloride 93 L, Carbon Dioxide 21.6, Anion Gap 12, BUN 58 H, Creatinine 2.40 H, Estim Creat Clear Calc 14.70 L, Est GFR (MDRD) Non-Af 19 L, BUN/Creatinine Ratio 24.3 H, Glucose 88, Calcium 8.2 Clinical Impression(s) from Imaging Studies Chest X-Ray 04/17/25 08:12 IMPRESSION: Moderate left base effusion. Left base consolidation not excluded. Trace right base effusion. Right lower lobe opacity not excluded. No pneumothorax. Reading Location: [id number] Thoracentesis Ultrasound 04/17/25 10:38 IMPRESSION: Successful diagnostic and therapeutic ultrasound-guided left thoracentesis. Reading Location: [facility] Echocardiogram 04/17/25 13:06 Interpretation Summary Mild concentric left ventricular hypertrophy. The LV ejection fraction is 60 %. Stage II LV diastolic dysfunction with elevated left atrial filling pressures The left atrium is moderately enlarged. The right atrium is mildly enlarged. Moderate mitral annular calcification. Mild (1+) mitral valve insufficiency. Moderate to severe tricuspid valve insufficiency. Estimated RVSP 66 mmHg. Aortic valve sclerosis with no stenosis. Mild to moderate aortic valve regurgitation. Mild-Moderate (1-2+) pulmonic valve insufficiency. Ordering Physician: Nestor Rankin Referring Physician: Nestor Rankin Performed By: Alondra Cross and Student Medications at Discharge Home Medications albuterol sulfate 90 mcg/actuation aerosol inhaler 1 - 2 puff inhalation 4X/DAY PRN wheezing 04/17/25 beclomethasone dipropionate 80 mcg/actuation HFA breath activated aerosol (Qvar RediHaler) 1 - 2 inh inhalation BID 04/17/25 cholecalciferol (vitamin D3) 25 mcg (1,000 unit) tablet (Vitamin D3) 25 mcg PO DAILY 04/17/25 cyanocobalamin (vitamin B-12) 1,000 mcg tablet 1,000 mcg PO DAILY 04/17/25 levothyroxine 50 mcg tablet 50 mcg PO DAILY disorder of thyroid gland 04/17/25 losartan 50 mg tablet 50 mg PO DAILY 04/17/25 Held on 04/20/25. Instructions: Hold for 1 week metoprolol succinate 50 mg tablet,extended release 24 hr 50 mg PO BID 04/17/25 furosemide 40 mg tablet (Lasix) 60 mg (1.5 x 40 mg) PO BID 30 days #180 tabs 04/20/25 Physical Exam Narrative Seen and examined. SOB has resolved. Leg swelling is better. No chest pain. Patient is daughter present in the room. Physical exam General: Alert, Oriented x3, Cooperative. BMI 30.5 kg/m² HEENT: Atraumatic, PERRLA, EOMI, Normocephalic. Oral: No Gingival or Mucosal Lesions/ Ulcerations Neck: Supple, No JVD, Negative Carotid Bruits Chest wall/Lungs: Air entry diminished in bilateral lung bases. No crepitation/rhonchi Cardiovascular: Regular rate and rhythm, Normal S1,S2, systolic murmur over LSB and cardiac apex. Abdomen: Bowel Sounds Present, Soft, Non Tender, Non-Distended : No dysuria. No renal angle tenderness. No suprapubic tenderness. Extremities: Bilateral 2+ lower extremity edema, improving capillary Refill Less than 3 Seconds Skin: No rashes, No breakdown Musculoskeletal: No Tenderness to Palpation of Joints or Extremities Neurological: Cranial nerves II-XII grossly intact, DTR 2+/4. No acute focal neurological deficit. Psych/Mental Status: Normal Affect, Appropriate. Weight / BMI Weight Weight: 154 lb 5.177 oz Body Mass Index (BMI) 30.1 ABG / Lab / Microbiology Data 04/19/25 05:45 04/20/25 06:16 Laboratory: Laboratory Results - last 24 hr 04/17/25 13:50: Fl Pathologist Comment Reviewed, Fluid Amylase 28 04/20/25 06:16: Sodium 130 L, Potassium 5.3 H, Chloride 97 L, Carbon Dioxide 24.3, Anion Gap 10, BUN 57 H, Creatinine 2.08 H, Estim Creat Clear Calc 16.95 L, Est GFR (MDRD) Non-Af 23 L, BUN/Creatinine Ratio 27.5 H, Glucose 91, Calcium 8.4 Microbiology: Microbiology 04/17/25 13:50 Fluid - Thoracentesis Fluid Gram Stain - Final 04/17/25 13:50 Fluid - Thoracentesis Fluid Body Fluid Culture - Final Culture exhibits no growth. 04/17/25 13:50 Fluid - Thoracentesis Fluid Anaerobic Culture - Preliminary No growth in 48 hours. D/C Instructions Discharge Diet: Low fat / Low cholesterol, 2000 mg Sodium Diet and - (FLUID restriction, 1800 ml) Weight Bearing Status: Weight bearing as tolerated Call your doctor if you observe: Fever of 101 or Higher, Coldness, Increased Pain, Numbness or Tingling, Change in Color, Inability to urinate, Inability to have a bowel movement, Shortness of breath, Dizziness, Fainting spells, Swelling in the ankles, Chest pain, Prolonged hiccupping, Increased palpitations (irregular heartbeat) and Calf discomfort DC O2, CPAP, BIPAP Needs Home O2 Discharge instructions: Yes Type of respiratory needs?: Oxygen Oxygen frequency: Continuous Continuous oxygen liters per minute: 2 DC home with Oxygen: Yes Home O2 MD Review: I have reviewed the oxygen testing, and the patient qualifies for home oxygen equipment and portability. The patient is mobile in the home and the community. When: IN 2 WEEKS Meaningful Use Info Meaningful Use Meaningful Use Diagnoses (Choose all that apply): None applicable and CHF CHF HOLDEN/ARB ordered at discharge?: No Reason HOLDEN/ARB not ordered?: Worsening renal disease Documented LVEF (%): 55 Ischemic Stroke Statin Dosing Therapy Reference: STATIN DOSE THERAPY REFERENCE: * Patients > 75 years receive moderate or high dose statin therapy. * Patients 75 years or YOUNGER should receive HIGH intensity statin dose unless contraindicated. You will be required to document reason for non-treatment if statin daily dose does not meet guidelines. HIGH DOSE STATIN THERAPY DAILY Atorvastatin > than or = to 40 mg Rosuvastatin > than or = to 20 mg Amlodipine + Atorvastatin > than or = to 2.5/40 mg Ezetimibe + Simvastatin 10/80 mg Simvastatin 80mg Discharge Plan Admission Admit Date/Time: 04/17/25 10:36 Primary Reason for Your Visit: CHF exacerbation, left pleural effusion Attending Provider: Nestor Rankin Primary Care Provider: Ally Gonzalez Consulting Providers: Chris Mane Discharge Orders/Prescriptions Prescriptions: New furosemide [Lasix] 40 mg tablet 60 mg PO BID 30 Days Qty: 180 1RF Continued albuterol sulfate 90 mcg/actuation HFA aerosol inhaler 1 - 2 puff inhalation 4X/DAY PRN (Reason: wheezing) metoprolol succinate 50 mg tablet extended release 24 hr 50 mg PO BID cyanocobalamin (vitamin B-12) 1,000 mcg tablet 1,000 mcg PO DAILY levothyroxine 50 mcg tablet 50 mcg PO DAILY cholecalciferol (vitamin D3) [Vitamin D3] 25 mcg (1,000 unit) tablet 25 mcg PO DAILY Qvar RediHaler 80 mcg/actuation HFA aerosol breath activated 1 - 2 inh inhalation BID Held losartan 50 mg tablet 50 mg PO DAILY Hold Instructions: Hold for 1 week Discontinued amlodipine 10 mg tablet 10 mg PO DAILY amoxicillin-pot clavulanate 500-125 mg tablet 1 tab PO Q12H Rx Instructions: FOR 7 DAYS; STARTED ON 04/13/25 prednisone 10 mg tablet 10 mg PO DAILY hydrochlorothiazide 12.5 mg tablet 12.5 mg PO DAILY Referrals / Follow Up: Chris Mane MD [Med Staff - Consulting] - Within 1 Week Ally Gonzalez MD [Primary Care Provider] - Carl Landin MD [Med Staff - Active Staff] - Within 1 Month (Acute on chronic combined heart failure) Disposition Disposition (needs filled in before D/C Order can be placed): Home, Self Care Charges/Coding Visit Charges Inpatient E&M: 81641 Disch Hosp >30min
[2025-04-20 14:08] LABS: Amylase Body Fluid 28 U/L (.)
--- NOTE | 2025-04-20 14:59 | CHAPLAIN ---
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 Pt is a person of ara and speaks about her uatsdin and her involvement; pt welcomes presence and prayer
--- NOTE | 2025-04-20 15:23 | PHA.DC_ITS ---
Pharmacy [facility] Counseling Pharmacy Service has performed discharge medication reconciliation and counseling for this patient. 1. FUROSEMIDE 60MG PO BID 2. STOP AMLODIPINE, HCTZ, AUGMENTIN, PREDNISONE 3. HOLD LOSARTAN X 1 WEEK The patient's discharge medication list was reviewed for discrepancies and discrepancies were resolved. The patient was counseled on the following discharge medications and changes in medications for homegoing were reviewed. The Reason for Use, instructions for use, and potential side effects were reviewed for all new medications. The patient's questions regarding all of their medications were answered. The patient was able to verbally demonstrate an understanding of their discharge medications. Medications at Discharge Home Medications albuterol sulfate 90 mcg/actuation aerosol inhaler 1 - 2 puff inhalation 4X/DAY PRN wheezing 04/17/25 beclomethasone dipropionate 80 mcg/actuation HFA breath activated aerosol (Qvar RediHaler) 1 - 2 inh inhalation BID 04/17/25 cholecalciferol (vitamin D3) 25 mcg (1,000 unit) tablet (Vitamin D3) 25 mcg PO DAILY 04/17/25 cyanocobalamin (vitamin B-12) 1,000 mcg tablet 1,000 mcg PO DAILY 04/17/25 levothyroxine 50 mcg tablet 50 mcg PO DAILY disorder of thyroid gland 04/17/25 losartan 50 mg tablet 50 mg PO DAILY 04/17/25 Held on 04/20/25. Instructions: Hold for 1 week metoprolol succinate 50 mg tablet,extended release 24 hr 50 mg PO BID 04/17/25 furosemide 40 mg tablet (Lasix) 60 mg (1.5 x 40 mg) PO BID 30 days #180 tabs 04/20/25
== END 2025-04-20 17:08 | disposition home health service (06) | DRG 291 ==
LOC: ED 11:04 → PCU 12:06
PROVIDERS: Internal Medicine Nephrology; Radiology Nuclear Radiology; Admitting Provider Internal Medicine; Emergency Provider Emergency Medicine; PCP Internal Medicine; Referring Provider Internal Medicine; Visit Provider Internal Medicine
DX: I13.0 Hypertensive heart and chronic kidney disease with heart failure and stage 1 through stage 4 chronic kidney disease, or unspecified chronic kidney disease (principal); I50.21 Acute systolic (congestive) heart failure; E87.1 Hypo-osmolality and hyponatremia; N18.4 Chronic kidney disease, stage 4 (severe); J90 Pleural effusion, not elsewhere classified; I08.3 Combined rheumatic disorders of mitral, aortic and tricuspid valves; J45.909 Unspecified asthma, uncomplicated; E66.9 Obesity, unspecified; E87.5 Hyperkalemia; I50.83 High output heart failure; Z68.30 Body mass index [BMI] 30.0-30.9, adult; Z99.81 Dependence on supplemental oxygen; Z79.51 Long term (current) use of inhaled steroids; Z79.899 Other long term (current) drug therapy
CPT/HCPCS: 32555; 36415; 71046; 76770; 80048; 80061; 80076; 81001; 81002; 82150; 82945; 83615; 83880; 84157; 84484; 85025; 85610; 85730; 87070; 87075; 87205; 88108; 88305; 88313; 89050; 93005; 93306; 94640; 94668; 97116; 97162; 97166; 97530; 97535; 97802; 97803; 99285; A4216; J1938

== ENCOUNTER 2025-04-23 18:02 | Emergency (ER) | payer MEDICARE, SELFPAY ==
[2025-04-23 18:03] VITALS: BP 215/87; PULSE 68; RESP 16; TEMP 36.5; O2SAT 99
[2025-04-23 18:52] LABS: Hematocrit 25.0 % (37-47); Hemoglobin 8.0 g/dL (12.0-15.0); Immature Granulocytes Count 0.040 X10^3/uL (0.0-0.0); Mean Corp Hgb Conc 32.0 g/dL (32-36); Mean Corpuscular Volume 94.3 fL (81-99); Mean Platelet Vol. 9.8 fl (6.2-12.0); NRBC Flagged by Analyzer 0 % (0-5); Platelet Count 126 K/mm3 (150-450); RBC Distribution Width CV 14.1 % (11.6-14.6); RBC Distribution Width SD 49.1 fl (35.1-43.9); Red Blood Count 2.65 M/mm3 (4.2-5.4); White Blood Count 6.2 K/mm3 (4.4-11.0)
[2025-04-23] MEDS: Metoprolol(XL)Succ 50 MG Tablet PO (18:55)
[2025-04-23 19:02] VITALS: BP 205/60; PULSE 72; RESP 19; O2SAT 100
[2025-04-23 19:36] LABS: Anion Gap 12 (5-15); BUN 60 mg/dL (4-19); BUN/Creat Ratio 30.3 RATIO (10-20); Calcium,Total 9.2 mg/dL (7.6-11.0); Carbon Dioxide 31.1 mmol/L (21.0-32.0); Chloride 95 mmol/L (98-108); Glucose 130 mg/dL (70-99); Potassium 4.6 mmol/L (3.3-5.1)
[2025-04-23 19:37] VITALS: BP 194/65; PULSE 67; RESP 18; O2SAT 100
[2025-04-23 20:09] VITALS: BP 190/57; PULSE 60; RESP 19; O2SAT 98
[2025-04-23 21:00] VITALS: BP 189/58; PULSE 53; RESP 12; O2SAT 99
[2025-04-23 21:51] VITALS: BP 189/67; PULSE 57; RESP 18; TEMP 36.7; O2SAT 100
== END 2025-04-23 21:59 | disposition home or self-care (01) ==
PROVIDERS: Emergency Provider Emergency Medicine; PCP Internal Medicine; Visit Provider Emergency Medicine
DX: I13.0 Hypertensive heart and chronic kidney disease with heart failure and stage 1 through stage 4 chronic kidney disease, or unspecified chronic kidney disease (principal); I50.9 Heart failure, unspecified; N18.32 Chronic kidney disease, stage 3b; D63.1 Anemia in chronic kidney disease; Z79.899 Other long term (current) drug therapy
CPT/HCPCS: 80048; 85025; 93005; 99285; A4216

== ENCOUNTER 2025-04-25 12:45 | Emergency (ER) | payer MEDICARE, SELFPAY ==
[2025-04-25 12:46] VITALS: BP 210/63; PULSE 64; RESP 16; TEMP 36.8; O2SAT 98; BMI 24.6
[2025-04-25 13:13] VITALS: BP 223/72; PULSE 64; RESP 22; O2SAT 100
[2025-04-25 13:47] VITALS: BP 220/69; PULSE 63; RESP 14; O2SAT 100
[2025-04-25 14:08] VITALS: BP 214/76; PULSE 66; RESP 18; O2SAT 100
[2025-04-25] MEDS: Metoprolol(XL)Succ 50 MG Tablet PO (15:52)
[2025-04-25 17:24] VITALS: BP 211/82
[2025-04-25 18:12] VITALS: BP 193/71; PULSE 60; RESP 18; TEMP 36.6; O2SAT 100
== END 2025-04-25 18:27 | disposition home or self-care (01) ==
PROVIDERS: Emergency Provider Emergency Medicine; PCP Internal Medicine; Visit Provider Emergency Medicine
DX: I13.0 Hypertensive heart and chronic kidney disease with heart failure and stage 1 through stage 4 chronic kidney disease, or unspecified chronic kidney disease (principal); N18.4 Chronic kidney disease, stage 4 (severe); I50.9 Heart failure, unspecified; D64.9 Anemia, unspecified; Z79.899 Other long term (current) drug therapy; Z79.51 Long term (current) use of inhaled steroids
CPT/HCPCS: 96374; 96375; 99285; A4216

== ENCOUNTER → 2025-08-14 | Outpatient (CLI) | payer MEDICARE, SELFPAY ==
[2025-08-14 11:52] LABS: Hematocrit 27.8 % (37-47); Hemoglobin 9.1 g/dL (12.0-15.0); Mean Corp Hgb Conc 32.7 g/dL (32-36); Mean Corpuscular Volume 95.9 fL (81-99); Mean Platelet Vol. 9.9 fl (6.2-12.0); Platelet Count 161 K/mm3 (150-450); RBC Distribution Width CV 14.0 % (11.6-14.6); RBC Distribution Width SD 49.1 fl (35.1-43.9); Red Blood Count 2.90 M/mm3 (4.2-5.4); White Blood Count 6.2 K/mm3 (4.4-11.0)
[2025-08-14 12:35] LABS: PTHIN 170 pg/mL (11-61)
[2025-08-14 12:58] LABS: Albumin, Serum 4.3 g/dL (3.4-4.8); Anion Gap 14 (5-15); BUN 74 mg/dL (4-19); BUN/Creat Ratio 28.0 RATIO (10-20); Calcium,Total 9.4 mg/dL (7.6-11.0); Carbon Dioxide 18.9 mmol/L (21.0-32.0); Chloride 106 mmol/L (98-108); Glucose 85 mg/dL (70-99); Potassium 5.0 mmol/L (3.3-5.1); Vitamin D,25 Hydroxy 45.2 ng/mL (30-100)
[2025-08-14 13:18] LABS: Anion Gap 12 (5-15); BUN 72 mg/dL (4-19); BUN/Creat Ratio 29.0 RATIO (10-20); Calcium,Total 9.3 mg/dL (7.6-11.0); Carbon Dioxide 19.1 mmol/L (21.0-32.0); Chloride 107 mmol/L (98-108); Glucose 85 mg/dL (70-99); Potassium 5.0 mmol/L (3.3-5.1); Pro- Brain NATRIURETIC PEPTIDE 3240 pg/mL (<=1800)
== END | disposition home or self-care (01) ==
PROVIDERS: Internal Medicine Cardiovascular Disease; PCP Internal Medicine; Referring Provider Nurse Practitioner Adult Health; Visit Provider Nurse Practitioner Adult Health
DX: N18.4 Chronic kidney disease, stage 4 (severe) (principal); I50.30 Unspecified diastolic (congestive) heart failure; E87.5 Hyperkalemia; E87.1 Hypo-osmolality and hyponatremia
CPT/HCPCS: 36415; 80048; 80069; 82306; 83880; 83970; 85027

== ENCOUNTER → 2025-08-19 | Outpatient (CLI) | payer MEDICARE, SELFPAY ==
[2025-08-19 12:42] LABS: Creatinine, Urine (random) 81.90 mg/dL (28.00-217.00); Protein, Urine (Random) 115.0 mg/dL (0.0-12.0); Protein:Creat Ratio 1404 mg/g CRE (0-200)
== END | disposition home or self-care (01) ==
LOC: LABSPEC 11:09
PROVIDERS: PCP Internal Medicine; Referring Provider Nurse Practitioner Adult Health; Visit Provider Nurse Practitioner Adult Health
DX: N18.4 Chronic kidney disease, stage 4 (severe) (principal)
CPT/HCPCS: 82570; 84156